=== PATIENT | female | born 1950 | race Caucasian/White ===

== ENCOUNTER 2019-11-22 13:48 | Outpatient (CLI) | payer MEDICARE, SELFPAY ==
--- NOTE | ~2019-11-22 | DEXA_ITS ---
Bone Density Report Name: Hoda Tidwell Age: 69 Sex: Female Ethnicity: White Date of : 1950 Indication: postmenopausal; hysterectomy; Referring Provider: EVA, LISHA Study: Bone densitometry was performed. Exam Date: November 22, 2019 Accession number: [id number] Bone Density: Region BMD T-score Z-score Classification AP Spine (L1-L4) 1.072 0.2 2.2 Normal Femoral Neck (Left) 0.748 -0.9 0.8 Normal Total Hip (Left) 1.003 0.5 1.9 Normal Total Hip Bilateral Avg 0.990 0.4 1.8 Normal Femoral Neck (Right) 0.740 -1.0 0.7 Normal Total Hip (Right) 0.975 0.3 1.7 Normal World Health Organization criteria for BMD impression classify patients as: Normal (T-score at or above -1.0), Osteopenia (T-score between -1.0 and -2.5), or Osteoporosis (T-score at or below -2.5). 10-year Fracture Risk: FRAX not reported because: All T-scores for Spine Total, Hip Total, Femoral Neck at or above -1.0 Previous Exams: Region Exam Age BMD T-score BMD Change BMD Change Date g/cm2 vs Baseline vs Previous AP Spine(L1-L4) 11/22/2019 69 1.072 0.2 -0.034(-3.0%)* -0.034(-3.0%)* 03/22/2015 64 1.105 0.5 Total Hip(Left) 11/22/2019 69 1.003 0.5 -0.013(-1.3%) -0.013(-1.3%) 03/22/2015 64 1.016 0.6 Total Hip(Right) 11/22/2019 69 0.975 0.3 -0.048(-4.6%)* -0.048(-4.6%)* 03/22/2015 64 1.023 0.7 *Denotes significance at 95% confidence level, LSC for AP Spine = 0.022 g/cm2, LSC for Total Hip = 0.027 g/cm2 Clinical Information Provided by Patient: Has used the following medications: Vitamin D, Calcium Has the following medical conditions: Hysterectomy Patient maximum height was 63 Menopause Age: 57 Drinks caffeinated beverages Onset of menses at age 15 Number of children 1 Impression: The patient has normal bone mass. The BMD for the AP Spine(L1-L4) decreased, changing by -3.0% since the last DXA exam. The BMD for the Total Hip(Right) decreased, changing by -4.6% since the last DXA exam. Discussion: BONE DENSITY IS ABOVE THE MINIMUM DESIRABLE LEVEL AT ALL SKELETAL SITES TESTED. This patient?s bone mineral density is above the minimum desirable level (T-score -1.0 or better) at all sites measured. The patient should follow a healthful lifestyle (good nutrition with adequate calcium and vitamin D, and appropriate weight-bearing exercise). Follow-Up: Consider repeating this study in 3 to 4 years to reassess this patient's status, or sooner if there
--- NOTE | ~2019-11-22 | MM_ITS ---
EXAMINATION: MM screening [facility] BI w [place] HISTORY: Screening mammogram TECHNIQUE: Craniocaudal and mediolateral oblique 3-D tomosynthesis images were obtained and synthetic 2-D images were generated. CAD analysis was submitted and interpreted. COMPARISON: 09/23/2018, 11/09/2017, 04/23/2017, 04/15/2017, 03/24/2016 BREAST PARENCHYMAL COMPOSITION: The breasts are heterogeneously dense, which may obscure small masses . FINDINGS: Scattered benign-appearing calcifications are present. There is no evidence of suspicious m ass, calcification, or architectural distortion to suggest malignancy in either breast. There has bee n no suspicious interval change. IMPRESSION: 1. No mammographic evidence of malignancy. 2. Recommend routine screening mammography in one year. BI-RADS Category 2: Benign finding(s). Reviewed, dictated and finalized at location A.
== END 2019-11-22 13:49 | disposition home or self-care (01) ==
LOC: ANHIMG 13:53
PROVIDERS: PCP Family Medicine; Visit Provider Nurse Practitioner
DX: Z12.31 Encounter for screening mammogram for malignant neoplasm of breast (principal); Z78.0 Asymptomatic menopausal state
CPT/HCPCS: 77063; 77067; 77080

== ENCOUNTER 2020-01-29 11:46 | Outpatient (NON) | payer MEDICARE, SELFPAY ==
[2020-01-29 23:58] LABS: SARS-CoV-2 RNA PCR Negative
== END 2020-01-29 11:47 ==
LOC: ANHCOVIDDT 11:48
PROVIDERS: PCP Family Medicine; Visit Provider Physician Assistant
DX: Z20.828 Contact with and (suspected) exposure to other viral communicable diseases (principal); R09.89 Other specified symptoms and signs involving the circulatory and respiratory systems
CPT/HCPCS: 87635; C9803; U0003

== ENCOUNTER 2021-01-08 18:44 | Emergency (ER) | payer MEDICARE, SELFPAY ==
--- NOTE | ~2021-01-08 | XR_ITS ---
EXAMINATION: XR chest 2V DATE: 01/08/2021 19:21 INDICATION: Hypertension presenting with chest and left arm tightness. TECHNIQUE: PA and lateral views of the chest were obtained. COMPARISON: Chest radiograph dated 11/05/2011 FINDINGS: The lungs remain clear with no focal airspace opacities, pulmonary edema, pleural effusion or pneumot horax. The cardiomediastinal silhouette is normal. Moderate to severe thoracic spondylosis. Cholecyst ectomy clips in the right upper quadrant. IMPRESSION: 1. No acute cardiopulmonary disease. Reviewed, dictated and finalized at location A. HOUSE INCENTIVE SELECTOR
[2021-01-08 18:55] VITALS: BP 204/107; PULSE 75; RESP 16; TEMP 36.6; O2SAT 100
[2021-01-08] MEDS: ALPRAZolam (*CRX) 0.5 MG TABLET PO (19:13)
--- NOTE | 2021-01-08 19:14 | PC.NURSE ---
Pt to [facility] via wheelchair at this time.
[2021-01-08 19:22] VITALS: BP 195/101; PULSE 63; RESP 18; O2SAT 100
[2021-01-08 19:28] LABS: Basophils Absolute Auto 0.1 K/mm3 (0.0-0.1); Basophils Percent Auto 0.7 % (0.2-1.2); Eosinophils Absolute Auto 0.2 K/mm3 (0-0.3); Hematocrit 44.4 % (37.0-47.0); Hemoglobin 14.6 g/dL (12.0-15.0); Immature Granulocyte Absolute 0.03 K/mm3 (0.00-0.031); Immature Granulocyte Percent A 0.3 % (0-0.5); Lymphocytes Absolute Auto 2.29 K/mm3 (0.9-3.2); Lymphocytes Percent Auto 23.1 % (18.3-44.2); Mean Corpuscular HGB Conc 32.9 g/dl (32-36); Mean Corpuscular Hemoglobin 30.7 pg (26-34); Mean Corpuscular Volume 93.5 fl (80-100); Mean Platelet Volume 9.1 fl (7.4-10.4); Monocytes Absolute Auto 0.7 K/mm3 (0.1-0.6); Monocytes Percent Auto 6.6 % (2.6-8.5); Neutrophils Absolute Auto 6.7 K/mm3 (1.3-6.7); Neutrophils Percent Auto 67.3 % (45.5-73.1); Platelet Count Result 358 k/mm3 (150-375); Red Blood Count 4.75 M/mm3 (4.2-5.4); Red Cell Distribution Width 12.3 % (11.5-14.5); White Blood Count 9.9 K/mm3 (4.5-10.0)
[2021-01-08 19:31] VITALS: BP 165/84
[2021-01-08 19:47] LABS: Anion Gap 9 mmol/L (8-16); Blood Urea Nitrogen 17 mg/dL (7-17); Calcium 9.5 mg/dL (8.4-10.2); Carbon Dioxide 26 mmol/L (22-30); Chloride 101 mmol/L (98-107); Estimated CRCL calculation 48 ml/min; Estimated Glomerular Filt Rate > 60; Glucose 97 mg/dL (65-110); Potassium 3.7 mmol/L (3.4-5.0); Sodium 136 mmol/L (137-145)
[2021-01-08 19:48] LABS: INR 0.9; Prothrombin Time 11.9 Seconds (11.1-14.7)
[2021-01-08 19:49] LABS: Partial Thromboplastin Time 25.2 SECONDS (22.3-36.8)
[2021-01-08 19:53] LABS: Troponin I < 0.012 ng/mL (0.000-0.034)
--- NOTE | 2021-01-08 19:55 | ED.GENADULT ---
HPI - General Adult General Chief complaint: Recheck/Abnormal Lab/Rx Stated complaint: high bp Time Seen by Provider: 01/08/21 18:48 History of Present Illness HPI narrative: Patient is a 70-year-old female who presents ER with hypertension. Patient reports systolic blood pressures in the 200 region at home x2 prior to arrival. She has been having issues with hypertension over the last month. This is her second ER visit. After her first visit she was put on indapamide which she had been taking previously. She still was having issues with episodic blood pressures around 190 mmHg when her doctor discontinued the indapamide and started her on labetalol 50 mg. Patient has been taking this medication because it also thought it may help control some anxiety she has been having. She reports she has been diagnosed with situational stress anxiety over the last year due to her mother's from Covid related complications and then dealing with issues related to her sister who has dementia. Today they did receive a call from the [facility] and were having to deal with issues related to the sister with dementia. Patient reports that when she starts to get episodes of stress she will get tightness in her neck and will also feel like her hands are shaking though they are not visibly shaking. She has not found an ideal way to fix this. This is how she has been feeling throughout the day. Related Data Home Medications Medication Instructions Recorded Confirmed ascorbate calcium (vitamin C) 500 500 mg PO DAILY 12/27/19 06/19/20 mg tablet cholecalciferol (vitamin D3) 25 25 mcg PO DAILY 12/27/19 06/19/20 mcg (1,000 unit) capsule garlic 1,000 mg capsule 1,000 mg PO DAILY 12/27/19 06/19/20 multivitamin 1 tablet PO DAILY 12/27/19 06/19/20 omega-3 fatty acids 1,000 mg 1,000 mg PO DAILY 12/27/19 06/19/20 capsule mecobalamin (vitamin B12) 5,000 5,000 mcg PO DAILY 12/31/20 mcg lozenge Allergies Allergy/AdvReac Type Severity Reaction Status Date / Time No Known Allergies Allergy Verified 01/08/21 19:13 Review of Systems Review of Systems: All systems reviewed & are unremarkable except as noted in HPI and below Constitutional: Constitutional: Denies chills, Denies fever(s) and Denies weakness ENT: Denies nasal congestion and Denies sore throat Comments: Neck tightness Cardiovascular: Cardiovascular: Denies chest pain, Denies rapid heart rate and Denies radiating jaw, neck or arm pain Respiratory: Respiratory: Denies cough, Denies dyspnea and Denies wheezing Gastrointestinal: Gastrointestinal: Denies abdominal pain and Denies nausea Musculoskeletal: Musculoskeletal: Denies back pain and Denies muscle cramps Neurologic: Denies headache(s), Denies focal weakness and Denies numbness PMFSH Past Medical History Medical History Cancer endometrial Carpal tunnel syndrome of left wrist Hypertension Hypertension, benign Hypothyroidism Lumbar spondylosis Skin lesion of left leg (~05/2018) Vitamin D deficiency Surgical History Surgical History History of breast lump/mass excision History of carpal tunnel surgery (~10/2011) left wrist History of hysterectomy (~05/2017) History of hysteroscopy (~04/2017) left wrist History of laparoscopic cholecystectomy (~2003) History of myomectomy (~1994) fibroid tumor removed off uterus History of oral surgery (~2005) removal of benign lesion inner mouth Hx of dilation and curettage (~04/2017) Hx of tonsillectomy (~1957) Social History Social History Smoking status: Never smoker Second hand tobacco smoke exposure: No Alcohol intake: current Alcohol use details: consume 1 glass of wine rarely Substance use: never Substance use type: does not use Gender identity (if verbalized by the patient): Female
--- NOTE | 2021-01-08 19:58 | PC.NURSE ---
Pt states she feels relaxed. Reports arm numbness and tightness in throat have improved since medication administration.
[2021-01-08 20:01] VITALS: BP 158/79; PULSE 65; RESP 18; O2SAT 99
[2021-01-08 20:28] VITALS: BP 138/78; PULSE 64; RESP 16; O2SAT 97
== END 2021-01-08 20:32 | disposition home or self-care (01) ==
PROVIDERS: Emergency Provider Emergency Medicine; PCP Family Medicine
DX: F41.9 Anxiety disorder, unspecified (principal); I10 Essential (primary) hypertension; Z85.42 Personal history of malignant neoplasm of other parts of uterus; E03.9 Hypothyroidism, unspecified; E55.9 Vitamin D deficiency, unspecified
CPT/HCPCS: 36415; 71046; 80048; 84484; 85025; 85610; 85730; 99284; A9270

== ENCOUNTER 2021-07-09 11:58 | Outpatient (CLI) | payer MEDICARE, SELFPAY ==
--- NOTE | ~2021-07-09 | MM_ITS ---
EXAMINATION: MM screening [facility] BI w [place] HISTORY: Screening mammogram TECHNIQUE: Craniocaudal and mediolateral oblique 3-D tomosynthesis images were obtained and synthetic 2-D images were generated. CAD analysis was submitted and interpreted. COMPARISON: 11/22/2019, 09/23/2018 BREAST PARENCHYMAL COMPOSITION: There are scattered areas of fibroglandular density. FINDINGS: There is no suspicious mass, calcification, or architectural distortion to suggest malignan cy in either breast. There has been no suspicious interval change. IMPRESSION: 1. No mammographic evidence of malignancy. 2. Recommend routine screening mammography in one year. BI-RADS Category 1: Negative Reviewed, dictated and finalized at location A.
== END 2021-07-09 11:59 | disposition home or self-care (01) ==
LOC: ANHIMG 11:59
PROVIDERS: PCP Family Medicine; Visit Provider Nurse Practitioner
DX: Z12.31 Encounter for screening mammogram for malignant neoplasm of breast (principal)
CPT/HCPCS: 77063; 77067

== ENCOUNTER 2022-06-28 15:00 | Inpatient (IN) | payer MEDICARE, SELFPAY ==
[2022-06-28] VITALS (22 sets, daily range): BP systolic 153–218; BP diastolic 84–118; PULSE 49–77; RESP 13–20; TEMP 36.3–36.7; O2SAT 98–100; BMI 25.9
--- NOTE | ~2022-06-28 | CT_ITS ---
. EXAMINATION: CTA brain carotid DATE: 06/28/2022 16:55 INDICATION: Dizziness. Left arm and leg weakness. TECHNIQUE: Computed tomographic angiography (CTA) of the head was performed without and with 100 mL O mnipaque-350 intravenous contrast. CTA of the neck was performed with intravenous contrast. Automated exposure control and iterative reconstruction technique were employed. The dose-length product was 1 699.68 mGy-cm. Maximum intensity projection and volume rendered 3D-reconstructions were created by corin palacios technologist on a separate workstation. COMPARISON: None. FINDINGS: HEAD CTA: There is no intracranial hemorrhage, acute infarction, or abnormal intracranial mass lesion . The ventricles are normal in size. The paranasal sinuses are clear. The orbits are normal. The mast oid air cells are normal. Right vertebral artery is dominant. There is no significant stenosis of bas ilar artery or the posterior cerebral arteries. The posterior communicating arteries are normal. Ther e is no significant stenosis of the intracranial internal carotid arteries or anterior or middle cere bral arteries. Anterior communicating artery is normal. There is no aneurysm. NECK CTA: There are no pathologically enlarged lymph nodes. There is no significant stenosis of the v ertebral arteries. There is plaque in the proximal internal carotid arteries. There is 0% stenosis of the proximal right internal carotid artery relative to normal distal artery lumen diameter (NASCET c riteria). There is 0% stenosis of the proximal left internal carotid artery relative to normal distal artery lumen diameter. There is severe cervical spondylosis. IMPRESSION: 1. Normal brain. No aneurysm or significant intracranial internal stenosis. 2. 0% stenosis of the proximal internal carotid arteries relative to normal distal artery lumen diame ters (NASCET criteria). Reviewed, dictated and finalized at location A. IMPRESSION: 1. Normal brain. No aneurysm or significant intracranial internal stenosis. 2. 0% stenosis of the proximal internal carotid arteries relative to normal dis samantha artery lumen diameters (NASCET criteria).
--- NOTE | ~2022-06-28 | MR_ITS ---
EXAMINATION: MR brain/brain stem wo/w con DATE: 06/29/2022 08:17 INDICATION: Cerebrovascular accident. Left hemiparesis TECHNIQUE: Magnetic resonance imaging (MRI) of the brain and brainstem was performed without and with 13 mL MultiHance intravenous contrast. COMPARISON: Head CT 06/28/2022 FINDINGS: There is an acute infarct involving the right basal ganglia and posterior limb right leadership program intern al capsule. There is no intracranial hemorrhage. There is an 11 mm enhancing mass at the lateral aspe ct of the right cavernous sinus. There are scattered areas of nonspecific increased T2-weighted signa l intensity in the cerebral white matter, which is within normal limits for the patient's age. The ve ntricles are normal in size. The paranasal sinuses are clear. The orbits are normal. The mastoid air cells are normal. IMPRESSION: 1. Acute infarct involving the right basal ganglia and posterior limb right internal capsule. 2. 11 mm enhancing mass at the lateral aspect of the right cavernous sinus, which may be a meningioma or schwannoma. Reviewed, dictated and finalized at location A. IMPRESSION: 1. Acute infarct involving the right basal ganglia and posterior limb right int ernal capsule. 2. 11 mm enhancing mass at the lateral aspect of the right cavernous sinus, whi ch may be a meningioma or schwannoma.
--- NOTE | ~2022-06-28 | MR_ITS ---
EXAMINATION: MR brain/brain stem wo/w con DATE: 06/30/2022 15:04 INDICATION: Acute stroke with increasing left-sided weakness TECHNIQUE: Magnetic resonance imaging (MRI) of the brain and brainstem was performed without and with 13 mL Multihance intravenous contrast. Sequences included sagittal and axial T1-weighted SE, axial d iffusion-weighted FS SE, axial 3D SWAN, axial T2-weighted FLAIR, and axial T2-weighted FSE. Postcontr ast axial and coronal T1-weighted SE was obtained. Apparent diffusion coefficient (ADC) maps were cre ated. COMPARISON: Brain MR dated 06/29/2022 FINDINGS: No interval change in size or extent of a region of acute infarct with restricted diffusion involving the right basal ganglia and extending into the posterior limb of the right internal capsule. There h as been interval increase in the intensity but not extending to the associated increased T2 signal co nsistent with progression of secondary cytotoxic edema. No intracranial hemorrhage. No interval ribera e in a 11 mm enhancing extra-axial mass at the lateral aspect of the right cavernous sinus. There are a few additional scattered small foci of nonspecific increased T2-weighted signal intensity in the c erebral white matter which is within normal limits for age. There are no intraparenchymal signal abno rmalities seen on the other pulse sequences. The ventricles are symmetric and normal in size. There a re no abnormal extra-axial fluid collections. Flow voids are seen in the cerebral arteries on the T2- weighted sequences consistent with their expected patency. Visualized orbits and soft tissues are unr emarkable. IMPRESSION: 1. No change in extent of an acute infarct involving the right basal ganglia and posterior limb of th e right internal capsule with increase in degree of associated cytotoxic edema. 2. No interval change in a 11 mm enhancing extra-axial masses at the lateral aspect of right cavernou s sinus most likely representing a meningioma or hemangioma. Reviewed, dictated and finalized at location A. IMPRESSION: 1. No change in extent of an acute infarct involving the right basal ganglia an d posterior limb of the right internal capsule with increase in degree of assoc iated cytotoxic edema. 2. No interval change in a 11 mm enhancing extra-axial masses at the lateral as pect of right cavernous sinus most likely representing a meningioma or hemangio ma.
--- NOTE | 2022-06-28 15:04 | ECG_ITS ---
Measurements Intervals [place] Rate: 62 P: 20 CT: 135 QRS: -24 QRSD: 118 T: 43 QT: 429 QTc: 438 Interpretive Statements SINUS RHYTHM INTRAVENTRICULAR CONDUCTION DELAY DELAYED PRECORDIAL R/S TRANSITION MINIMAL Q WAVES- HIGH LATERAL LEADS BORDERLINE ECG NO PREVIOUS ECG AVAILABLE FOR COMPARISON Electronically Signed On 06-28-2022 21:20:56 CDT by Celestino Mar D.O.
--- NOTE | 2022-06-28 15:11 | PC.NURSE ---
Patient states at 0730 this morning she noticed she was having dizziness and her left arm and leg were feeling heavy . patient has no drift in any extremities.
[2022-06-28 15:24] LABS: Basophils Absolute Auto 0.1 K/mm3 (0.0-0.1); Basophils Percent Auto 0.5 % (0.2-1.2); Eosinophils Absolute Auto 0.2 K/mm3 (0-0.3); Eosinophils Percent Auto 1.7 % (0-4.4); Hematocrit 43.3 % (37.0-47.0); Hemoglobin 14.2 g/dL (12.0-15.0); Immature Granulocyte Absolute 0.02 K/mm3 (0.00-0.031); Immature Granulocyte Percent A 0.2 % (0-0.5); Lymphocytes Absolute Auto 2.05 K/mm3 (0.9-3.2); Lymphocytes Percent Auto 20.3 % (18.3-44.2); Mean Corpuscular HGB Conc 32.8 g/dl (32-36); Mean Corpuscular Hemoglobin 31.1 pg (26-34); Mean Corpuscular Volume 94.7 fl (80-100); Mean Platelet Volume 9.6 fl (7.4-10.4); Monocytes Absolute Auto 0.5 K/mm3 (0.1-0.6); Monocytes Percent Auto 5.4 % (2.6-8.5); Neutrophils Absolute Auto 7.3 K/mm3 (1.3-6.7); Neutrophils Percent Auto 71.9 % (45.5-73.1); Platelet Count Result 298 k/mm3 (150-375); Red Blood Count 4.57 M/mm3 (4.2-5.4); Red Cell Distribution Width 12.6 % (11.5-14.5); White Blood Count 10.1 K/mm3 (4.5-10.0)
--- NOTE | 2022-06-28 15:33 | ED.GENADULT ---
HPI - General Adult General Chief complaint: Dizziness Stated complaint: dizzy, lightheaded Time Seen by Provider: 06/28/22 15:11 History of Present Illness HPI narrative: 71-year-old female presenting to the emergency department for evaluation of dizziness and associated left arm and left leg weakness. Patient states yesterday she was working in the yard and had approximately a 10 to 15-minute period where she had onset of dizziness and had some gait instability. Patient states that symptoms resolved and she felt that she was fine the rest of the evening. Patient states that when she woke up this morning the dizziness had returned but she also had left arm and left leg weakness. Patient denies any confusion any facial droop any change in speech. Patient has no prior history of TIA, CVA, stroke, PE, DVT Patient does have history of hypertension and does take metoprolol Related Data Home Medications Medication Instructions Recorded Confirmed cholecalciferol (vitamin D3) 25 25 mcg PO DAILY 12/27/19 06/28/22 mcg (1,000 unit) capsule garlic 1,000 mg capsule 1,000 mg PO DAILY 12/27/19 06/28/22 multivitamin 1 tablet PO DAILY 12/27/19 06/28/22 omega-3 fatty acids 1,000 mg 1,000 mg PO DAILY 12/27/19 06/28/22 capsule (Fish Oil Concentrate) cyanocobalamin (vitamin B-12) 500 500 mcg PO DAILY 01/30/21 06/28/22 mcg lozenges (Vitamin B-12) ascorbate calcium (vitamin C) 500 500 mg PO DAILY 05/20/21 06/28/22 mg tablet ketoconazole 2 % topical cream 1 applic topical BID 06/23/22 06/28/22 labetalol 100 mg tablet 100 mg PO BID 06/23/22 06/28/22 triamcinolone acetonide 0.1 % 1 applic topical BID 06/23/22 06/28/22 topical cream Allergies Allergy/AdvReac Type Severity Reaction Status Date / Time No Known Allergies Allergy Verified 06/23/22 09:23 Review of Systems Review of Systems: All systems reviewed & are unremarkable except as noted in HPI and below PMFSH Past Medical History Medical History Cancer endometrial Carpal tunnel syndrome of left wrist Essential hypertension Hypertension Hypertension, benign Hypothyroidism Lumbar spondylosis Skin lesion of left leg (~05/2018) Vitamin B12 deficiency Vitamin D deficiency Surgical History Surgical History History of breast lump/mass excision History of carpal tunnel surgery (~10/2011) left wrist History of hysterectomy (~05/2017) History of hysteroscopy (~04/2017) left wrist History of laparoscopic cholecystectomy (~2003) History of myomectomy (~1994) fibroid tumor removed off uterus History of oral surgery (~2005) removal of benign lesion inner mouth Hx of dilation and curettage (~04/2017) Hx of tonsillectomy (~1957) Social History Social History Smoking status: Never smoker Second hand tobacco smoke exposure: No Alcohol intake: current Drinks per week: 2 Alcohol use details: consume 1 glass of wine rarely Substance use: never Substance use type: does not use Lack of Transportation: No Lack of Food: Never True Current Housing: I Have Housing Concerned About Future Housing: No Difficulty Paying Gas/Electric Bills: No Difficulty Paying for Meds: No Currently Unemployed: No Education: Bachelor's Degree Difficulty w/ Childcare or Family Care: No Living arrangements: with family Additional living arrangements comments: ROBERT Occupation/Education: retired Gender identity (if verbalized by the patient): Female Sexual Orientation (if Verbalized by the Patient): Straight or Heterosexual Spiritual care concerns: No Agree to blood products: Yes Exam Narrative: APPEARANCE: Well appearing, no pain, no distress, well-nourished. HEAD: normocephalic, atraumatic. EYES: PERRLA/EOMI, conjunctivae clear. No visual field deficit NOSE: Normal no drainage EA
[2022-06-28 15:38] LABS: Alanine Aminotransferase 34 U/L (6-35); Albumin Level 4.3 g/dL (3.5-5.1); Alkaline Phosphatase 83 U/L (38-126); Anion Gap 10 mmol/L (8-16); Aspartate Amino Transferase 32 U/L (14-36); Bilirubin,Total 0.7 mg/dL (0.2-1.3); Blood Urea Nitrogen 21 mg/dL (7-17); Carbon Dioxide 24 mmol/L (22-30); Chloride 104 mmol/L (98-107); Estimated CRCL calculation 59 ml/min; Estimated Glomerular Filt Rate > 60; Glucose 142 mg/dL (65-110); Sodium 138 mmol/L (137-145)
[2022-06-28] MEDS: ASPIRIN 81 MG CHEWABLE TABLET 324 MG PO (17:29)
--- NOTE | 2022-06-28 22:34 | PM.IMHP ---
H&P: HPI History of Present Illness Date/Time: 06/28/22 19:00 Chief Complaint: Left-sided weakness and off balance. Narrative: This is a very pleasant 71-year-old female with hypertension, hypothyroidism, and anxiety who presented to the emergency department via private vehicle from home for evaluation of left-sided weakness and feelings of being off balance. The patient provides the following history. Yesterday she was at an event out in the community and was feeling fine however sometime in the afternoon she got up from a seated position and while walking she felt off balance an as though her left foot was not doing what she wanted to do. This lasted for approximately 15 minutes before resolving and the rest of her day was unremarkable. 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 Her balance also seemed a bit off again. She and her went to [employer] and due to persistent symptoms she came in for evaluation. She denies overt vertigo, vision changes, facial droop, paresthesias, and difficulty speaking and swallowing. She has no history of cardiac dysrhythmia but does describe having a remote history of palpitations for which she wore an event monitor many years ago which was unrevealing. In the ED: Blood pressure has been as high as 205/92 which is quite unusual for her. Her remaining vital signs have been stable. Pertinent labs included WBC count of 10.1, hemoglobin 14.2, normal electrolytes, random glucose 142, normal LFTs. CTA of the head and neck showed a normal brain with no aneurysm or significant intracranial internal stenosis and 0% stenosis of the proximal internal carotid arteries. EKG showed a sinus rhythm with interventricular conduction delay, delayed precordial R/S transition, and minimal Q-waves in the high lateral leads. She is being admitted in this setting for close monitoring and neurology consultation. Review of Systems Review of Systems: Twelve systems were reviewed. No recent cold or flu symptoms. She denies exertional chest pain shortness a breath. No nausea or vomiting. Except as documented, all other systems were reviewed and are negative. [facility] Past Medical History Medical History (Updated 06/28/22 @ 22:48 by Juli Carter PA-C) Endometrial cancer Stage I, status post hysterectomy. Essential hypertension Hypothyroidism Lumbar spondylosis Mixed hyperlipidemia Vitamin B12 deficiency Vitamin D deficiency Surgical History Surgical History (Updated 06/28/22 @ 22:43 by Juli Carter PA-C) History of breast lump/mass excision History of carpal tunnel surgery (10/2011) Left. History of dilation and curettage (04/2017) History of hysterectomy (05/2017) History of hysteroscopy (04/2017) History of laparoscopic cholecystectomy (2003) History of myomectomy (1994) fibroid tumor removed off uterus History of oral surgery (2005) Excision of benign lesion from the mouth. History of tonsillectomy (1957) Family History Family History (Updated 06/28/22 @ 22:44 by Juli Carter PA-C) Mother Lung cancer Hypertension Acute myocardial infarction Father Lung cancer Social History Social History (Updated 06/28/22 @ 22:45 by Juli Carter PA-C) Social History: Surrogate medical decision maker: Heriberto Tidwell, spouse. Code status: Full code. Smoking status: Never smoker Second hand tobacco smoke exposure: No Alcohol intake: current Alcohol use details: One glass of wine on rare occasions. Substance use: never Substance use type: does not use Lack of Transportation: No Lack of Food: Never True Current Housing: I Have Housing Concerned About Future Housing: No Difficulty Paying Gas/Electric Bills: No Difficulty Paying for Meds: No Currently Unemployed: No Education: Bachelor's Degree Difficulty w/ Childcare or Family Care:
[2022-06-29] VITALS (11 sets, daily range): BP systolic 151–164; BP diastolic 72–96; PULSE 55–83; RESP 18–20; TEMP 36.5–36.7; O2SAT 96–99
[2022-06-29] MEDS: LABETALOL HCL 100 MG TABLET PO ×3 (00:16→20:39)
[2022-06-29 05:31] LABS: Anion Gap 3 mmol/L (8-16); Blood Urea Nitrogen 19 mg/dL (7-17); Calcium 9.3 mg/dL (8.4-10.2); Carbon Dioxide 28 mmol/L (22-30); Chloride 108 mmol/L (98-107); Estimated CRCL calculation 47 ml/min; Estimated Glomerular Filt Rate > 60; Glucose 95 mg/dL (65-110); Magnesium 2.1 mg/dL (1.6-2.3); Potassium 4.1 mmol/L (3.4-5.0); Sodium 139 mmol/L (137-145)
[2022-06-29 06:01] LABS: Thyroid Stimulating Hormone Reflex 0.705 uIU/mL (0.465-4.68)
[2022-06-29] MEDS: LEVOTHYROXINE SODIUM 100 MCG TABLET PO (06:05)
--- NOTE | 2022-06-29 07:12 | PM.IMPN ---
Progress Note: A&P Assessment and Plan (1) Left-sided weakness: Code(s): R53.1 - Weakness Status: Acute Assessment and Plan: Patient had a 15 minute episode 06/27/22 afternoon where she felt off balance and as though her left foot was a bit discoordinated that resolved spontaneously. She developed weakness and heaviness in the left arm and leg upon waking 06/28/22 which persisted prompting her visit to ED. CTA of the head and neck without acute infarct, aneurysm, or LVO. But given symptoms concern for TIA versus CVA. Risk factors include: hyperlipidemia (not on medication)- check lipid panel. Significant HTN (SBP >200/95). she is compliant with her antihypertensives and reports her blood pressures are typically well controlled. Review of PCP office notes show BP 126/80-138/84 in the past year. Continue labetalol BID and PRN hydralazine SBP>185 or DBP> 110. Allow for permissive hypertension first 24 hours and slowly decrease by no more than 25%. EKG shows sinus rhythm 62 bpm with minimal Qwaves high lateral leads. No prior EKG for comparison. Monitoring telemetry for arrythmia. Continue neurologic checks q.4 hours. Brain MRI shows acute infarct involving the right basal ganglia posterior limb right internal capsule echocardiogram with bubble study pending. 324 mg PO aspirin given in ED and started on aspirin 81 mg daily. Plavix 75 mg p.o. daily x6 weeks initiated per Neurology Lipid panel shows LDL and triglycerides 98. apo-B pending. Lipitor 40 mg p.o. daily started Check B12, folate, homocysteine and MMA to rule out persistent vitamin B deficiency given her history. Check vitamin D level due to gait instability-48 A1c 5.4 % Neurology has been consulted and appreciate recommendations (2) Essential hypertension: Code(s): I10 - Essential (primary) hypertension Status: Chronic Assessment and Plan: Blood pressures have been running in the 180s to low 200s systolic upon presentation. Continue BP management as above. (3) Mixed hyperlipidemia: Code(s): E78.2 - Mixed hyperlipidemia Status: Chronic Assessment and Plan: Documented history of hyperlipidemia though she is not currently on medication. 12/2021 lipid panel shows Triglycerides 108, LDL 129, non-HDL 151, HDL 73. Lipid panel and apo-B level as above. (4) Hypothyroidism: Qualifiers: Hypothyroidism type: acquired Qualified Code(s): E03.9 - Hypothyroidism, unspecified Code(s): E03.9 - Hypothyroidism, unspecified Status: Chronic Assessment and Plan: TSH 0.705. Continue levothyroxine. Time Spent With Patient Time: 45 minutes time spent with patient assessment; patient/family education; review of labs, imaging, vitals; coordination and review of consult provider and nursing documentation. All questions answered to the best of my ability. Subjective Date/time seen: 06/29/22 07:12 Interval history: She reports persistent heavy sensation to her left arm and left leg. She denies headaches, vision changes, word finding, slurred speech, facial droop, facial paresthesia, dysphagia, or paresthesia. She feels like her gait is unsteady due to heavy sensation to her left leg. Review of Systems Review of Systems: All systems reviewed & are unremarkable except as noted in HPI and below Exam Narrative: General: well-developed female sitting up in bed in no distress. Nontoxic appearing HEENT: Normocephalic, atraumatic. PERRL, EOMI. Sclera anicteric. Oral mucosa moist. Oropharynx clear. Neck: Supple. No carotid bruits. Respiratory: Lungs are clear to auscultation bilaterally. Respirations equal and nonlabored Cardiovascular: Regular rate and rhythm with S1-S2. No murmur, rub, or gallop. Normal sinus rhythm on telemetry Gastrointestinal: Abdomen is soft, nontender, and nondistended with positive bowel sounds. Skin: Warm and dry. No rash or les
[2022-06-29 07:49] LABS: Cholesterol 198 mg/dL (0-200); HDL Direct 60 mg/dL; Triglycerides 98 mg/dL (<150)
[2022-06-29 08:00] LABS: LDL Cholesterol Direct 98 mg/dL
[2022-06-29 08:08] LABS: Vitamin D 25 Hydroxy 48.7 ng/mL
[2022-06-29 08:15] LABS: Hemoglobin A1C 5.4 % (<5.7)
[2022-06-29 09:02] LABS: Folic Acid > 20.0 ng/mL (2.76->20)
[2022-06-29] MEDS: CHOLECALCIFEROL 1,000 UNITS TABLET 1000 UNITS PO (10:01)
[2022-06-29] MEDS: CYANOCOBALAMIN 500 MCG TABLET PO (10:01)
[2022-06-29] MEDS: MULTIVITAMINS THERAPEUTIC TAB (*BKC) 1 TABLET PO (10:01)
[2022-06-29] MEDS: OMEGA 3 POLYUNSAT FATTY ACIDS 1 GM CAP PO (10:01)
[2022-06-29] MEDS: ASCORBIC ACID 500 MG TABLET PO (10:01)
[2022-06-29] MEDS: ASPIRIN 81 MG CHEWABLE TABLET PO (10:02)
--- NOTE | 2022-06-29 11:19 | WPDNEURCNPN ---
Assessment and Plan Assessment and plan (1) Left-sided weakness: Code(s): R53.1 - Weakness Status: Acute (2) Acute CVA (cerebrovascular accident): Code(s): I63.9 - Cerebral infarction, unspecified Status: Acute (3) Essential hypertension: Code(s): I10 - Essential (primary) hypertension Status: Chronic (4) Mixed hyperlipidemia: Code(s): E78.2 - Mixed hyperlipidemia Status: Chronic Plan Hoda Tidwell is a 71 year old female with a history of hypertension, hypothyroidism, anxiety who presented due to concerns of dizziness and left sided weakness, found to have acute lacunar infarct in the right basal ganglia. Etiology is likely uncontrolled hypertension. - Start Aspirin and Plavix x 3 weeks, then Aspirin monotherapy - LDL goal <70, start statin - Surface echocardiogram is pending - Optimize blood pressure control - Outpatient Neurosurgery evaluation of meningioma/schwannoma Consult date: 06/29/22 Reason for consult: TIA/stroke HPI: Hoda Tidwell is a 71 year old female with a history of hypertension, hypothyroidism, anxiety who presented due to concerns of dizziness and left sided weakness. On 06/27 patient got up from seated posoition and felt like she was off balance, as if she has no control of her left foot. This lasted for about 15 minutes before self-resolving. 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 Due to persistence of symptoms, she presented to [place] ED. In the ED her blood pressure was notably elevated to 218 systolic. Her EKG showed normal sinus rhythm. CT head was negative for acute process and CTA was negative for stenosis or occlusion. Her NIH score was 2 for limb ataxia. She did not receive tPA due to being outside window for acute treatment. Her LDL level is 98 from this admission. Her HgbA1c is 5.4. She does not take any antiplatelets or statins. MRI brain has been done which shows acute infarct in the right basal ganglia and posterior limb of right internal capsule. Also noted to have 11 mm enhancing mass in the lateral aspect of right cavernous sinus, which may indicate meningioma or schwannoma. Patient still feels weak on the left side. Review of Systems Constitutional: Constitutional: Denies chills, Denies fever(s) and Denies weight loss Eyes: Eyes: Denies diplopia and Denies loss of vision ENT: Denies dizziness, Denies hearing loss and Denies tinnitus Cardiovascular: Cardiovascular: Denies chest pain, Denies syncope and Denies dyspnea Respiratory: Respiratory: Denies cough, Denies dyspnea and Denies wheezing Gastrointestinal: Gastrointestinal: Denies abdominal pain, Denies change in bowel habits and Denies vomiting Genitourinary: Genitourinary: Denies urinary incontinence Musculoskeletal: Musculoskeletal: Denies arthralgias and Denies joint swelling Integumentary/Breasts: Skin/Breast: Denies new lesions and Denies rash Neurologic: Reports as per HPI, Denies dizziness, Denies syncope and Denies loss of vision Psychiatric: Psychiatric: Denies anxiety and Denies depression Endocrine: Endocrine: Denies cold intolerance and Denies heat intolerance Hematologic/Lymphatic: Hematologic/Lymphatic: Denies easy bleeding and Denies easy bruising Allergic/Immunologic: Allergic/Immunologic: Denies no additional allergic/immunologic complaints and Denies wheezing PMFSH Past Medical History Medical History Endometrial cancer Stage I, status post hysterectomy. Essential hypertension Hypothyroidism Lumbar spondylosis Mixed hyperlipidemia Vitamin B12 deficiency Vitamin D deficiency Surgical History Surgical History History of breast lump/mass excision History of carpal tunnel surgery (10/2011) Left. History of dilation and curettage (04/2017) Hist
--- NOTE | 2022-06-29 14:50 | ECHO_ITS ---
Patient Info Name: Hoda Tidwell Age: 71 years : 1950 Gender: Female Ht: 63 in Wt: 146 lbs BSA: 1.73 m2 HR: 65 bpm BP: 188 / 86 mmHg Technical Quality: Fair Exam Date: 06/29/2022 2:28 PM Exam Location: [facility] Pulmonary Exam Room: 257 Patient Status: Inpatient Admit Date: 06/29/2022 Staff Ordering Physician: Juli Carter PA-C [employer] Picker: Nadia Jaramillo RDCS Attending Provider: Charlie Vasquez MD Referring Physician: Raul AMIN; Exam Type: CA echo doppler w bubble study Study Info Indications - left side weakness - htn Complete two-dimensional, color flow and Doppler transthoracic echocardiogram is performed with agitated saline. Contrast/Agitated Saline Contrast/Ag. Saline: Agitated Saline Amount: 20.00 ml Existing IV Access: Yes Summary 1. Left ventricular chamber dimension is normal. 2. Left ventricular systolic function is normal, estimated at 60-65%. 3. The left ventricular diastolic function is grade I diastolic dysfunction. 4. E/e' 12 is mildly elevated. 5. There is trace mitral valve regurgitation. 6. There is trace tricuspid valve regurgitation. 7. No pulmonary hypertension, estimated pulmonary arterial systolic pressure is 37 mmHg. 8. There is trace pulmonic regurgitation. Left Ventricle E/e' 12 is mildly elevated. Left ventricular chamber dimension is normal. Left ventricular systolic function is normal, estimated at 60-65%. The left ventricular diastolic function is grade I diastolic dysfunction. Right Ventricle Right ventricular chamber dimension is normal. Right ventricular systolic function is normal. Left Atria Left atrial chamber dimension is normal. Atrial Septum Agitated saline injection with and without valsalva maneuver opacified right side cardiac chambers without shunt to left side cardiac chambers. Intact interatrial septum visualized by 2D and agitated saline imaging. Aortic Valve The aortic valve is trileaflet. There is no aortic valve stenosis. There is no aortic valve regurgitation. Pulmonic Valve There is trace pulmonic regurgitation. Mitral Valve There is no mitral valve stenosis. There is trace mitral valve regurgitation. Tricuspid Valve There is trace tricuspid valve regurgitation. No pulmonary hypertension, estimated pulmonary arterial systolic pressure is 37 mmHg. Pericardium/Pleural There is no pericardial effusion. Inferior Vena Cava Normal inferior vena cava with >50% collapse upon inspiration consistent with normal right atrial pressure, 5 mmHg. Aorta The aortic root size at the sinus of Valsalva is normal. Left Ventricular Outflow Tract Name Value Normal LVOT 2D LVOT Diameter 2.0 cm LVOT Doppler LVOT Peak Gradient 4 mmHg LVOT Mean Gradient 2 mmHg LVOT VTI 23 cm LVOT VTI/AV VTI Ratio 1.1 LVOT Stroke Volume 71 ml LVOT CO 13.3 l/min LVOT CI 7.7 l/min/m2 Pulmonic Valve
[2022-06-30] VITALS (13 sets, daily range): BP systolic 143–178; BP diastolic 68–95; PULSE 59–97; RESP 14–20; TEMP 36.6–36.7; O2SAT 97–99
[2022-06-30] MEDS: LEVOTHYROXINE SODIUM 88 MCG TABLET PO (05:40)
[2022-06-30] MEDS: OMEGA 3 POLYUNSAT FATTY ACIDS 1 GM CAP PO (08:21)
[2022-06-30] MEDS: ASCORBIC ACID 500 MG TABLET PO (08:21)
[2022-06-30] MEDS: ATORVASTATIN 40 MG TABLET PO (08:21)
[2022-06-30] MEDS: CLOPIDOGREL BISULFATE 75 MG TABLET PO (08:21)
[2022-06-30] MEDS: MULTIVITAMINS THERAPEUTIC TAB (*BKC) 1 TABLET PO (08:21)
[2022-06-30] MEDS: CYANOCOBALAMIN 500 MCG TABLET PO (08:21)
[2022-06-30] MEDS: CHOLECALCIFEROL 1,000 UNITS TABLET 1000 UNITS PO (08:22)
[2022-06-30] MEDS: LABETALOL HCL 100 MG TABLET PO ×2 (08:22→21:01)
[2022-06-30] MEDS: ASPIRIN 81 MG CHEWABLE TABLET PO (08:22)
[2022-06-30] MEDS: LORazepam (*CRX) 0.5 MG TABLET PO ×2 (08:41→21:01)
[2022-06-30] MEDS: LOSARTAN POTASSIUM 50 MG TABLET PO (10:32)
[2022-06-30] MEDS: TRIAMCINOLONE ACET 0.1% CREAM 15 GM TUBE 1 APPLIC TOPICAL (12:35)
[2022-06-30] MEDS: MICONAZOLE NITRATE 2% CREAM 30 GM TUBE 1 APPLIC TOPICAL ×2 (12:35→21:01)
--- NOTE | 2022-06-30 13:01 | WPDNEUROPN ---
Progress Note: A&P Assessment and Plan (1) Left-sided weakness: Code(s): R53.1 - Weakness Status: Acute (2) Acute CVA (cerebrovascular accident): Code(s): I63.9 - Cerebral infarction, unspecified Status: Acute (3) Mixed hyperlipidemia: Code(s): E78.2 - Mixed hyperlipidemia Status: Chronic (4) Essential hypertension: Code(s): I10 - Essential (primary) hypertension Status: Chronic Plan Hoda Tidwell is a 71 year old female with a history of hypertension, hypothyroidism, anxiety who presented due to concerns of dizziness and left sided weakness, found to have acute lacunar infarct in the right basal ganglia. Etiology is likely uncontrolled hypertension. Patient reports worsening left sided weakness today. Likely related to evolving edema surrounding infarct. Will repeat MRI to confirm. - Repeat MRI brain w/o contrast - Start Aspirin and Plavix x 3 weeks, then Aspirin monotherapy - LDL goal <70, start statin - Optimize blood pressure control - Outpatient Neurosurgery evaluation of meningioma/schwannoma Subjective Date/time seen: 06/30/22 13:01 Interval history: Hoda Tidwell is a 71 year old female with a history of hypertension, hypothyroidism, anxiety who presented due to concerns of dizziness and left sided weakness. On 06/27 patient got up from seated position and felt like she was off balance, as if she has no control of her left foot. This lasted for about 15 minutes before self-resolving. 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 Due to persistence of symptoms, she presented to [place] ED. In the ED her blood pressure was notably elevated to 218 systolic. Her EKG showed normal sinus rhythm. CT head was negative for acute process and CTA was negative for stenosis or occlusion. Her NIH score was 2 for limb ataxia. She did not receive tPA due to being outside window for acute treatment. Her LDL level is 98 from this admission. Her HgbA1c is 5.4. She does not take any antiplatelets or statins. MRI brain has been done which shows acute infarct in the right basal ganglia and posterior limb of right internal capsule. Also noted to have 11 mm enhancing mass in the lateral aspect of right cavernous sinus, which may indicate meningioma or schwannoma. Blood pressure was in the 170s earlier today so Losartan was added. BP improved to 140s. Patient still feels weak on the left side, today she feels that her coordination and strength have worsened. Surface echocardiogram was unrevealing. Review of Systems Constitutional: Constitutional: Denies chills, Denies fever(s) and Denies weight loss Eyes: Eyes: Denies diplopia and Denies loss of vision ENT: Denies dizziness, Denies hearing loss and Denies tinnitus Cardiovascular: Cardiovascular: Denies chest pain, Denies syncope and Denies dyspnea Respiratory: Respiratory: Denies cough, Denies dyspnea and Denies wheezing Gastrointestinal: Gastrointestinal: Denies abdominal pain, Denies change in bowel habits and Denies vomiting Genitourinary: Genitourinary: Denies urinary incontinence Musculoskeletal: Musculoskeletal: Denies arthralgias and Denies joint swelling Integumentary/Breasts: Skin/Breast: Denies new lesions and Denies rash Neurologic: Reports as per HPI, Denies dizziness, Denies syncope and Denies loss of vision Psychiatric: Psychiatric: Denies anxiety and Denies depression Endocrine: Endocrine: Denies cold intolerance and Denies heat intolerance Hematologic/Lymphatic: Hematologic/Lymphatic: Denies easy bleeding and Denies easy bruising Allergic/Immunologic: Allergic/Immunologic: Denies no additional allergic/immunologic complaints and Denies wheezing Exam Const: General: no acute distress and well nourished Nutritional Appearance: well nourished HENMT: Head: normocephalic and atraumatic Ears: hearing grossly normal bilate
--- NOTE | 2022-06-30 17:17 | PM.IMPN ---
Progress Note: A&P Assessment and Plan (1) Left-sided weakness: Code(s): R53.1 - Weakness Status: Acute Assessment and Plan: Patient had a 15 minute episode 06/27/22 afternoon where she felt off balance and as though her left foot was a bit discoordinated that resolved spontaneously. She developed weakness and heaviness in the left arm and leg upon waking 06/28/22 which persisted prompting her visit to ED. CTA of the head and neck without acute infarct, aneurysm, or LVO. But given symptoms concern for TIA versus CVA. Risk factors include: hyperlipidemia (not on medication)- check lipid panel. Significant HTN (SBP >200/95). she is compliant with her antihypertensives and reports her blood pressures are typically well controlled. Review of PCP office notes show BP 126/80-138/84 in the past year. Continue labetalol BID and PRN hydralazine SBP>185 or DBP> 110. Allow for permissive hypertension first 24 hours and slowly decrease by no more than 25%. EKG shows sinus rhythm 62 bpm with minimal Qwaves high lateral leads. No prior EKG for comparison. Monitoring telemetry for arrythmia. Continue neurologic checks q.4 hours. Brain MRI shows acute infarct involving the right basal ganglia posterior limb right internal capsule echocardiogram with bubble study shows no PFO/ASD, normal LV systolic function, EF 60-65%, grade 1 diastolic dysfunction, E/E 12 and mildly elevated and trace mitral and tricuspid valve regurgitation. H2FPEF score 57.9% risk HFpEF 324 mg PO aspirin given in ED and started on aspirin 81 mg daily. Plavix 75 mg p.o. daily x6 weeks initiated per Neurology Lipid panel shows LDL and triglycerides 98. apo-B pending. Lipitor 40 mg p.o. daily started B12 and folate-within normal limits homocysteine and MMA pending vitamin D level due to gait instability-stable at 48 A1c 5.4 % Neurology has been consulted and appreciate recommendations 06/30/2022 blood pressure still elevated 175/87, heart rate 73 this morning. Losartan 50 mg p.o. daily added and repeat BP 143/82. Hydralazine IV p.r.n. parameters decreased to give SBP greater than 150 and DBP greater than 90. Goal blood pressure optimally less than 130/80. Continue to adjust antihypertensives as needed. 06/30/2022 patient reported increased weakness to left upper extremity and left lower extremity. Discussed with neurology who is in agreement repeat MRI of the brain was completed and did not show changed to acute infarct region however increased edema was noted. (2) Essential hypertension: Code(s): I10 - Essential (primary) hypertension Status: Chronic Assessment and Plan: Blood pressures have been running in the 180s to low 200s systolic upon presentation. Continue BP management as above. (3) Mixed hyperlipidemia: Code(s): E78.2 - Mixed hyperlipidemia Status: Chronic Assessment and Plan: Documented history of hyperlipidemia though she is not currently on medication. 12/2021 lipid panel shows Triglycerides 108, LDL 129, non-HDL 151, HDL 73. Lipid panel as above. Apo-B level pending (4) Hypothyroidism: Qualifiers: Hypothyroidism type: acquired Qualified Code(s): E03.9 - Hypothyroidism, unspecified Code(s): E03.9 - Hypothyroidism, unspecified Status: Chronic Assessment and Plan: TSH 0.705. Continue levothyroxine. (5) Meningioma: Code(s): D32.9 - Benign neoplasm of meninges, unspecified Status: Suspected Assessment and Plan: Incidental finding on MRI. Patient should have outpatient evaluation by neuro surgery. Time Spent With Patient Time: 45 minutes time spent with patient assessment; patient education; review of labs, vitals and imaging; discussion with consulting providers and review of nursing documentation. All questions answered to the best of my ability. Subjective Date/time seen: 06/30/22 17:17 Interval history: She jaron
[2022-06-30] MEDS: hydrALAZINE HCL 20 MG/ML VIAL 10 MG IV PUSH (18:09)
[2022-07-01] VITALS: PULSE 69
[2022-07-01 04:00] VITALS: PULSE 69
[2022-07-01] MEDS: LEVOTHYROXINE SODIUM 100 MCG TABLET PO (05:33)
[2022-07-01 06:00] VITALS: BP 141/71; PULSE 73; RESP 18; TEMP 36.8; O2SAT 96
[2022-07-01 08:00] VITALS: PULSE 84; RESP 18; O2SAT 96
[2022-07-01 08:38] LABS: Alanine Aminotransferase 30 U/L (6-35); Albumin Level 4.1 g/dL (3.5-5.1); Alkaline Phosphatase 74 U/L (38-126); Anion Gap 8 mmol/L (8-16); Aspartate Amino Transferase 33 U/L (14-36); Bilirubin,Total 1.2 mg/dL (0.2-1.3); Blood Urea Nitrogen 18 mg/dL (7-17); Calcium 9.2 mg/dL (8.4-10.2); Carbon Dioxide 26 mmol/L (22-30); Chloride 103 mmol/L (98-107); Estimated CRCL calculation 53 ml/min; Estimated Glomerular Filt Rate > 60; Glucose 96 mg/dL (65-110); Sodium 137 mmol/L (137-145)
[2022-07-01] MEDS: ATORVASTATIN 40 MG TABLET PO (09:31)
[2022-07-01] MEDS: ASCORBIC ACID 500 MG TABLET PO (09:31)
[2022-07-01] MEDS: CYANOCOBALAMIN 500 MCG TABLET PO (09:31)
[2022-07-01] MEDS: CLOPIDOGREL BISULFATE 75 MG TABLET PO (09:31)
[2022-07-01] MEDS: ASPIRIN 81 MG CHEWABLE TABLET PO (09:31)
[2022-07-01] MEDS: CHOLECALCIFEROL 1,000 UNITS TABLET 1000 UNITS PO (09:31)
[2022-07-01 09:32] VITALS: PULSE 84
[2022-07-01] MEDS: OMEGA 3 POLYUNSAT FATTY ACIDS 1 GM CAP PO (09:32)
[2022-07-01] MEDS: TRIAMCINOLONE ACET 0.1% CREAM 15 GM TUBE 1 APPLIC TOPICAL (09:32)
[2022-07-01] MEDS: LABETALOL HCL 100 MG TABLET PO (09:32)
[2022-07-01] MEDS: MICONAZOLE NITRATE 2% CREAM 30 GM TUBE 1 APPLIC TOPICAL (09:32)
[2022-07-01] MEDS: MULTIVITAMINS THERAPEUTIC TAB (*BKC) 1 TABLET PO (09:32)
[2022-07-01] MEDS: LOSARTAN POTASSIUM 50 MG TABLET PO (09:32)
[2022-07-01 09:48] LABS: Hematocrit 43.4 % (37.0-47.0); Hemoglobin 14.2 g/dL (12.0-15.0); Mean Corpuscular HGB Conc 32.7 g/dl (32-36); Mean Corpuscular Hemoglobin 31.3 pg (26-34); Mean Corpuscular Volume 95.8 fl (80-100); Mean Platelet Volume 10.1 fl (7.4-10.4); Platelet Count Result 305 k/mm3 (150-375); Red Blood Count 4.53 M/mm3 (4.2-5.4); Red Cell Distribution Width 12.7 % (11.5-14.5); White Blood Count 8.7 K/mm3 (4.5-10.0)
--- NOTE | 2022-07-01 12:11 | P.PNIM_ITS ---
Progress Note: A&P Assessment and Plan (1) Left-sided weakness: Code(s): R53.1 - Weakness Status: Acute Assessment and Plan: Patient had a 15 minute episode 06/27/22 afternoon where she felt off balance and as though her left foot was a bit discoordinated that resolved spontaneously. She developed weakness and heaviness in the left arm and leg upon waking 06/28/22 which persisted prompting her visit to ED. * CTA of the head and neck without acute infarct, aneurysm, or LVO. But given symptoms concern for TIA versus CVA. * Risk factors include: * hyperlipidemia (not on medication)- check lipid panel. * Significant HTN (SBP >200/95). she is compliant with her antihypertensives and reports her blood pressures are typically well controlled. Review of PCP office notes show BP 126/80-138/84 in the past year. Continue labetalol BID and PRN hydralazine SBP>185 or DBP> 110. Allow for permissive hypertension first 24 hours and slowly decrease by no more than 25%. * EKG shows sinus rhythm 62 bpm with minimal Qwaves high lateral leads. No prior EKG for comparison. Monitoring telemetry for arrythmia. * Continue neurologic checks q.4 hours. * Brain MRI shows acute infarct involving the right basal ganglia posterior limb right internal capsule * echocardiogram with bubble study shows no PFO/ASD, normal LV systolic function, EF 60-65%, grade 1 diastolic dysfunction, E/E 12 and mildly elevated and trace mitral and tricuspid valve regurgitation. H2FPEF score 57.9% risk HFpEF * 324 mg PO aspirin given in ED and started on aspirin 81 mg daily. * Plavix 75 mg p.o. daily x6 weeks initiated per Neurology * Lipid panel shows LDL and triglycerides 98. apo-B pending. Lipitor 40 mg p.o. daily started B12 and folate-within normal limits * homocysteine and MMA pending * vitamin D level due to gait instability-stable at 48 * A1c 5.4 % * Neurology has been consulted and appreciate recommendations * 06/30/2022 blood pressure still elevated 175/87, heart rate 73 this morning. Losartan 50 mg p.o. daily added and repeat BP 143/82. Hydralazine IV p.r.n. parameters decreased to give SBP greater than 150 and DBP greater than 90. Goal blood pressure optimally less than 130/80. Continue to adjust antihypertensives as needed. * 06/30/2022 patient reported increased weakness to left upper extremity and left lower extremity. Discussed with neurology who is in agreement repeat MRI of the brain was completed and did not show changed to acute infarct region however increased edema was noted. * 07/01 I have discussed this case neurology and they have cleared patient for discharge. Patient's blood pressure stable at 140/70. Discussed blood pressure logs and close follow-up with primary care provider. Patient and family verbalized their understanding. (2) Essential hypertension: Code(s): I10 - Essential (primary) hypertension Status: Chronic Assessment and Plan: Blood pressures have been running in the 180s to low 200s systolic upon presentation. * Continue BP management as above. (3) Mixed hyperlipidemia: Code(s): E78.2 - Mixed hyperlipidemia Status: Chronic Assessment and Plan: Documented history of hyperlipidemia though she is not currently on medication. 12/2021 lipid panel shows Triglycerides 108, LDL 129, non-HDL 151, HDL 73. * Lipid panel as above. * Apo-B level pending (4) Hypothyroidism: Qualifiers: Hypothyroidism type: acquired Qualified Code(s): E03.9 - Hypothyroidism, unspecified Code(s): E03.9 - Hypothyroidism, unspecified Sta
--- NOTE | 2022-07-01 12:16 | PM.DS ---
DS: Admitting Diagnosis Discharge Date 07/01/22 Admitting Diagnosis CVA DS: Discharge Diagnosis Discharge Diagnosis (1) Left-sided weakness: Code(s): R53.1 - Weakness Status: Acute Assessment and Plan: Patient had a 15 minute episode 06/27/22 afternoon where she felt off balance and as though her left foot was a bit discoordinated that resolved spontaneously. She developed weakness and heaviness in the left arm and leg upon waking 06/28/22 which persisted prompting her visit to ED. CTA of the head and neck without acute infarct, aneurysm, or LVO. But given symptoms concern for TIA versus CVA. Risk factors include: hyperlipidemia (not on medication)- check lipid panel. Significant HTN (SBP >200/95). she is compliant with her antihypertensives and reports her blood pressures are typically well controlled. Review of PCP office notes show BP 126/80-138/84 in the past year. Continue labetalol BID and PRN hydralazine SBP>185 or DBP> 110. Allow for permissive hypertension first 24 hours and slowly decrease by no more than 25%. EKG shows sinus rhythm 62 bpm with minimal Qwaves high lateral leads. No prior EKG for comparison. Monitoring telemetry for arrythmia. Continue neurologic checks q.4 hours. Brain MRI shows acute infarct involving the right basal ganglia posterior limb right internal capsule echocardiogram with bubble study shows no PFO/ASD, normal LV systolic function, EF 60-65%, grade 1 diastolic dysfunction, E/E 12 and mildly elevated and trace mitral and tricuspid valve regurgitation. H2FPEF score 57.9% risk HFpEF 324 mg PO aspirin given in ED and started on aspirin 81 mg daily. Plavix 75 mg p.o. daily x6 weeks initiated per Neurology Lipid panel shows LDL and triglycerides 98. apo-B pending. Lipitor 40 mg p.o. daily started B12 and folate-within normal limits homocysteine and MMA pending vitamin D level due to gait instability-stable at 48 A1c 5.4 % Neurology has been consulted and appreciate recommendations 06/30/2022 blood pressure still elevated 175/87, heart rate 73 this morning. Losartan 50 mg p.o. daily added and repeat BP 143/82. Hydralazine IV p.r.n. parameters decreased to give SBP greater than 150 and DBP greater than 90. Goal blood pressure optimally less than 130/80. Continue to adjust antihypertensives as needed. 06/30/2022 patient reported increased weakness to left upper extremity and left lower extremity. Discussed with neurology who is in agreement repeat MRI of the brain was completed and did not show changed to acute infarct region however increased edema was noted. 07/01 I have discussed this case neurology and they have cleared patient for discharge. Patient's blood pressure stable at 140/70. Discussed blood pressure logs and close follow-up with primary care provider. Patient and family verbalized their understanding. (2) Essential hypertension: Code(s): I10 - Essential (primary) hypertension Status: Chronic Assessment and Plan: Blood pressures have been running in the 180s to low 200s systolic upon presentation. Continue BP management as above. (3) Mixed hyperlipidemia: Code(s): E78.2 - Mixed hyperlipidemia Status: Chronic Assessment and Plan: Documented history of hyperlipidemia though she is not currently on medication. 12/2021 lipid panel shows Triglycerides 108, LDL 129, non-HDL 151, HDL 73. Lipid panel as above. Apo-B level pending (4) Hypothyroidism: Qualifiers: Hypothyroidism type: acquired Qualified Code(s): E03.9 - Hypothyroidism, unspecified Code(s): E03.9 - Hypothyroidism, unspecified Status: Chronic Assessment and Plan: TSH 0.705. Continue levothyroxine. (5) Meningioma: Code(s): D32.9 - Benign neoplasm of meninges, unspecified Status: Suspected Assessment and Plan: Incidental finding on MRI. Patient should have outpatient evaluation by neuro s
[2022-07-01 13:32] LABS: Appearance Urine Clear (Clear); Bacteria Urine None Seen /hpf; Bilirubin Urine Negative (Negative); Blood Urine Negative (Negative); Color Urine Dark Yellow (Yellow); Glucose Urine UA Negative (Negative); Ketones Urine Trace mg/dL (Negative); Leukocyte Esterase Ur Trace LEU/UL (Negative); Nitrate Urine Negative (Negative); Non Pathogenic Casts 0-2; Protein Urine Trace mg/dL (Negative); RBC Urine 0-2 /hpf (0-2); Specific Grav Ur 1.028 (1.001-1.035); Squamous Epithelial Cell Urine None seen /hpf (Few); WBC Urine 0-5 /hpf
[2022-07-01 13:49] LABS: Add Urine Microscopic? YES
[2022-07-01 15:58] VITALS: BP 138/70
[2022-07-03 06:33] LABS: Apolipoprotein B 89 mg/dL (<90)
[2022-07-04 01:00] LABS: Methylmalonic Acid 112 nmol/L (87-318)
== END 2022-07-01 16:15 | disposition home or self-care (01) | DRG 66 ==
LOC: ANHED 15:53 → ANH2MED 18:43
PROVIDERS: Nurse Practitioner Family; Physician Assistant; Admitting Provider Chiropractor; Emergency Provider Emergency Medicine; PCP Family Medicine; Visit Provider Internal Medicine Critical Care Medicine
DX: I63.9 Cerebral infarction, unspecified (principal); R53.1 Weakness; R26.89 Other abnormalities of gait and mobility; R29.702 NIHSS score 2; I10 Essential (primary) hypertension; E78.2 Mixed hyperlipidemia; E03.9 Hypothyroidism, unspecified; D32.9 Benign neoplasm of meninges, unspecified; F41.9 Anxiety disorder, unspecified; M47.816 Spondylosis without myelopathy or radiculopathy, lumbar region; E53.8 Deficiency of other specified B group vitamins; E55.9 Vitamin D deficiency, unspecified; Z85.89 Personal history of malignant neoplasm of other organs and systems; Z90.710 Acquired absence of both cervix and uterus; Z90.49 Acquired absence of other specified parts of digestive tract
CPT/HCPCS: 36415; 70496; 70498; 70553; 80048; 80053; 80061; 81001; 82172; 82306; 82607; 82746; 83036; 83090; 83735; 83921; 84443; 85025; 85027; 93005; 93306; 96375; 97112; 97116; 97161; 97165; 97530; 97535; 99285; A9270; A9577; G0378; J0360; Q9967

== ENCOUNTER 2022-11-18 00:22 | Day surgery (SDC) | payer MEDICARE, SELFPAY ==
[2022-11-12 15:38] VITALS: BMI 24.8
--- NOTE | 2022-11-12 15:43 | PC.NURSE ---
Report to the Outpatient Waiting Room, entrance under the green pavilion located off [address], at time ___09____ on date __11/18/22 . Planned Procedure Time: __1000 . Time changes happen often and if your time is changed the preop area will call you the afternoon before. - You and your visitor will be asked to self-screen and do not enter if you have any COVID symptoms. - A mask is optional within the hospital at this time. -MAY HAVE LIGHT BREAKFAST Take the following medications with a SIP of water the morning of surgery: ___REGULAR HOME MEDS DO NOT STOP ANY OF YOUR OTHER PRESCRIPTION MEDICATIONS PRIOR TO SURGERY ?EXCEPT THE FOLLOWING Medications to discontinue per physician _ASPIRIN PER DR DOTY'S INSTRUCTIONS Date to take last dose Please no make-up, nail hebrew, hairspray, perfume, deodorant, or body powder the day of surgery. No jewelry (including any body piercings) or valuables the day of surgery, leave them at home. Please take a shower or bath the night before, or the morning of, surgery with an antibacterial soap. Wear comfortable, loose fitting clothing. Children are encouraged to wear pajamas. - Jewelry must be removed prior to entering the operating room. Rings and piercings that are not removed may be cut off. - The hospital will not accept responsibility for valuables. - Please leave all valuables, including medications, at home the day of surgery. A licensed contract driver IS RECOMMENDED Follow any additional instructions given to you from your surgeon. If you or anyone in your household have experienced Covid symptoms in the past week, please notify your surgeon or the nurse liaison at the phone number below for possible testing. Telephone instructions given to ___PATIENT and asked if any additional questions and then verbalized understanding. Patient advised to call surgeon office or pre surgery nurse liaison [phone] if any additional questions.
[2022-11-18] VITALS (10 sets, daily range): BP systolic 130–147; BP diastolic 65–70; PULSE 56–62; RESP 12–16; O2SAT 96–99
--- NOTE | ~2022-11-18 | XR_ITS ---
EXAMINATION: XR hand RT 2V DATE: 11/18/2022 10:34 INDICATION: Lost needle TECHNIQUE: Posteroanterior and lateral views of the right hand were obtained. COMPARISON: None. FINDINGS: Bone alignment is normal. No fracture. Polyarticular osteoarthritis, moderate severity at the triscap he, first interphalangeal and third distal interphalangeal joints and mild at the first carpal metaca rpal and multiple metacarpal phalangeal and remaining interphalangeal joints. Soft tissues are unrema rkable with no radiopaque foreign bodies. IMPRESSION: 1. 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 No acute osseous abnormality or r adiopaque foreign bodies. Reviewed, dictated and finalized at location A. IMPRESSION: 1. 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 No acute os seous abnormality or radiopaque foreign bodies.
--- NOTE | 2022-11-18 07:20 | WPDHPUPDATE1 ---
History and Physical Update Update Date/Time: 11/18/22 07:20 History and Physical has been reviewed, including an updated exam of the patient. There are NO changes in the patient's condition. Risks, benefits, and alternatives have been discussed and questions answered. Patient agrees to proceed with procedure.
[2022-11-18] MEDS: LIDO 1%/EPINEPHRINE 1:100,000 20 ML VIAL 4 ML INFILTRATE (09:37)
[2022-11-18] MEDS: BACITRACIN OINTMENT 15 GM TUBE 1 APPLIC TOPICAL (10:07)
--- NOTE | 2022-11-18 10:39 | W.PM.PROC2 ---
Procedure Note - Detailed Date of Procedure 11/18/22 Pre-op Diagnosis Right Carpal Tunnel Synd Post-op Diagnosis Same Procedure Performed Right open carpal tunnel release Surgeon Terrell Urban MD Anesthesia Local Description of Procedure The right carpal tunnel was marked on the patient's wrist in the holding area with her consent. She was taken to the operating room where she was placed supine on the operating table. A time-out was held and confirmed. The site was remarked for the incision and locally infiltrated with 1% lidocaine with epinephrine. The procedure was done without tourniquet control. The incision was made and sharp and blunt dissection revealed the palmar aponeurosis. Same technique divided most of the palmar aponeurosis. The transverse retinaculum was opened with a 15 blade. Under 3 point retraction the ligament was divided distally and proximally for complete release. There was no unusual anatomy noted. The skin was closed with interrupted 5 0 nylon suture. The usual bandage was applied. She is discharged from the operating room stable condition. Estimated Blood Loss 2 Tourniquet Time 0 Drains No Packing No Pathology None sent Complications No immediate complications Condition Stable Disposition Same day
== END 2022-11-18 10:54 | disposition home or self-care (01) ==
PROVIDERS: PCP Family Medicine; Visit Provider Plastic Surgery
PROC: (CPT 64721; principal; 2022-11-18 10:00)
DX: G56.01 Carpal tunnel syndrome, right upper limb (principal)
CPT/HCPCS: 64721; 73120; A9270

== ENCOUNTER → 2023-04-19 15:15 | Outpatient (CLI) | payer MEDICARE, SELFPAY ==
--- NOTE | ~2023-04-19 | XR_ITS ---
EXAM: XR lumbar spine 2-3V DATE: 04/19/2023 15:41 HISTORY: M54.50 - Low back pain, unspecified . COMPARISON: 04/07/2016. FINDINGS: Cholecystectomy clips. 5 nonrib-bearing lumbar-type vertebral bodies. Pedicles intact. Trac e retrolistheses at L1-2 through L3-4. 7 mm anterolisthesis at L5-S1. Vertebral body heights preserve d. Multilevel moderate disc height loss and mild marginal osteophytosis. Facet cirrhosis and hypertro phy in the lower lumbar spine. Likely bilateral pars defects at L5. No fracture or dislocation. The c alcified fibroid is no longer seen in the pelvis. IMPRESSION: Grade 1 anterolisthesis at L5-S1, increased since the prior exam. Multilevel moderate deg enerative disc disease, also with interval progression. Moderate facet arthropathy in the lower lumba r spine. Likely bilateral pars defects at L5. Reviewed, dictated and finalized at location K. BLE MEDICAL EQUIPMENT TECHNICIAN IMPRESSION: Grade 1 anterolisthesis at L5-S1, increased since the prior exam. M ultilevel moderate degenerative disc disease, also with interval progression. M oderate facet arthropathy in the lower lumbar spine. Likely bilateral pars defe cts at L5.
--- NOTE | ~2023-04-19 | XR_ITS ---
EXAM: XR hip LT 2V w AP pelvis DATE: 04/19/2023 15:41 HISTORY: M25.559 - Pain in unspecified hip . COMPARISON: None available. FINDINGS: Normal mineralization. No fracture or dislocation. No lytic or blastic lesion. Mild bilate ral superior hip joint space narrowing. Mild scattered pelvic enthesopathy. Degenerative changes in t he lumbar spine. Cholecystomy clips. Pelvic phleboliths No erosion or periosteal change. Soft tissues within normal limits. IMPRESSION: Mild bilateral hip osteoarthritis. Reviewed, dictated and finalized at location K. AL DEPARTMENT SPECIALIST
== END ==
PROVIDERS: PCP Family Medicine; Visit Provider Family Medicine
DX: M47.817 Spondylosis without myelopathy or radiculopathy, lumbosacral region (principal); M47.816 Spondylosis without myelopathy or radiculopathy, lumbar region; M51.36 Other intervertebral disc degeneration, lumbar region; M16.0 Bilateral primary osteoarthritis of hip
CPT/HCPCS: 72100; 73502

== ENCOUNTER 2023-04-20 16:22 | Outpatient (CLI) | payer MEDICARE, SELFPAY ==
--- NOTE | ~2023-04-20 | MM_ITS ---
EXAMINATION: MM screening italo BI w keily HISTORY: Screening TECHNIQUE: Craniocaudal and mediolateral oblique 3-D tomosynthesis images were obtained and synthetic 2-D images were generated. CAD analysis was submitted and interpreted. COMPARISON: No prior mammogram is available for comparison at this institution. BREAST PARENCHYMAL COMPOSITION: Not dense: There are scattered areas of fibroglandular density. FINDINGS: There are asymmetries in the upper outer quadrant of both breasts. There are no suspicious calcifications or architectural distortion. IMPRESSION: 1. Bilateral breast asymmetries. 2. Additional mammographic views and possible breast ultrasound are recommended. BI-RADS Category 0: Incomplete: Needs additional imaging evaluation. Reviewed, dictated and finalized at location A. AUDITOR IMPRESSION: 1. Bilateral breast asymmetries. 2. Additional mammographic views and possible breast ultrasound are recommended . BI-RADS Category 0: Incomplete: Needs additional imaging evaluation.
== END 2023-04-20 16:23 | disposition home or self-care (01) ==
LOC: ANHIMG 16:24
PROVIDERS: PCP Family Medicine; Visit Provider Nurse Practitioner
DX: Z12.31 Encounter for screening mammogram for malignant neoplasm of breast (principal); R92.8 Other abnormal and inconclusive findings on diagnostic imaging of breast
CPT/HCPCS: 77063; 77067

== ENCOUNTER 2023-05-01 10:48 | Outpatient (CLI) | payer MEDICARE, SELFPAY ==
--- NOTE | ~2023-05-01 | DEXA_ITS ---
Bone Density Report Name: JOSE LUIS URIARTE Age: 72 Sex: Female Ethnicity: White Date of : 1950 Indication: postmenopausal; screening for osteoporosis; height loss; hysterectomy; Referring Provider: EVA, LISHA Study: Bone densitometry was performed. Exam Date: May 01, 2023 Accession number: [id number] Bone Density: Region BMD T-score Z-score Classification AP Spine(L1-L4) 1.062 0.1 2.3 Normal Femoral Neck (Left) 0.656 -1.7 0.1 Osteopenia Total Hip (Left) 0.845 -0.8 0.8 Normal Femoral Neck (Right) 0.684 -1.5 0.4 Osteopenia Total Hip (Right) 0.867 -0.6 1.0 Normal Total Hip Mean 0.856 -0.7 0.9 Normal World Health Organization criteria for BMD impression classify patients as: Normal (T-score at or above -1.0), Osteopenia (T-score between -1.0 and -2.5), or Osteoporosis (T-score at or below -2.5). 10-year Fracture Risk(1): Major Osteoporotic Fracture 10.0% Hip Fracture 1.7% Reported Risk Factors: [place] (), Neck BMD=0.656, BMI=37.3 (1) FRAX(R) Version 3.08. Fracture probability calculated for an untreated patient. Fracture probability may be lower if the patient has received treatment. Previous Exams: Region Exam Age BMD T-score BMD Change BMD Change Date g/cm2 vs Baseline vs Previous AP Spine (L1-L4) 05/01/2023 72 1.062 0.1 -0.044 (-4.0%) -0.010 (-0.9%) 11/22/2019 69 1.072 0.2 -0.034 (-3.0%) -0.034 (-3.0%) 03/22/2015 64 1.105 0.5 Total Hip(Left) 05/01/2023 72 0.845 -0.8 -0.172 (-16.9% -0.159 (-15.8% 11/22/2019 69 1.003 0.5 -0.013 (-1.3%) -0.013 (-1.3%) 03/22/2015 64 1.016 0.6 Total Hip(Right) 05/01/2023 72 0.867 -0.6 -0.155 (-15.2% -0.108 (-11.1% 11/22/2019 69 0.975 0.3 -0.048 (-4.6%) -0.048 (-4.6%) 03/22/2015 64 1.023 0.7 *Denotes significance at 95% confidence level, LSC for AP Spine = 0.022 g/cm2, LSC for Total Hip = 0.027 g/cm2 # Denotes dissimilar scan types or analysis methods Clinical Information Provided by Patient: Has used the following medications: Vitamin D Has the following medical conditions: Hysterectomy Patient maximum height was 62.5 Menopause Age: 57 Drinks caffeinated beverages Onset of menses at age 14 Number of children 1 Impression: The patient has low bone mass, based on the Left Femoral Neck T-score. The patient has an estimated ten-year risk of hip fracture of 1.7% and an estimated ten-year risk of ma
== END 2023-05-01 10:49 | disposition home or self-care (01) ==
PROVIDERS: PCP Family Medicine; Visit Provider Nurse Practitioner
DX: M85.89 Other specified disorders of bone density and structure, multiple sites (principal); Z78.0 Asymptomatic menopausal state
CPT/HCPCS: 77080

== ENCOUNTER 2023-05-25 10:48 | Outpatient (CLI) | payer MEDICARE, SELFPAY ==
--- NOTE | ~2023-05-25 | MMUS_ITS ---
EXAMINATION: MM diagnostic italo BI w keily, US breast BI complete HISTORY: Follow-up bilateral breast asymmetries TECHNIQUE: Additional 3-D tomosynthesis images of the breasts were performed and synthetic 2-D images were generated. CAD analysis was submitted and interpreted. High resolution bilateral complete breas t ultrasound was performed. COMPARISON: Comparison to multiple prior studies sequentially, with oldest reviewed study dated 07/09. BREAST PARENCHYMAL COMPOSITION: Dense: The breasts are heterogeneously dense, which may obscure small masses FINDINGS: MAMMOGRAPHIC FINDINGS: There are no suspicious masses, calcifications or architectural distortion in either breast to sugges t malignancy. ULTRASOUND: Complete bilateral US of all 4 quadrants of the breasts and retroareolar region was reviewed Right breast: At 1:00, 8 cm from the nipple, there is an oval hypoechoic mass measuring 6 x 5 x 2 mm without internal vascularity or posterior features. There is parallel orientation, likely benign. At 7:00, 2 cm from the nipple there is a cyst. Left breast: At 1:00, 3 cm from the nipple there is a 3 mm cyst. At 2:00, 4 cm from the nipple there is an irregular shaped hypoechoic mass with internal echoes measuring 7 x 5 x 4 mm. There is marginal vascularity. At 2:30, 4 cm from the nipple there is an irregular shaped partially solid hypoechoic i rregular 6 mm mass without associated vascularity. Mixed posterior attenuation. IMPRESSION: 1. Abnormal left breast masses located at 2:00 and 2:30. 2. Ultrasound-guided left breast biopsies recommended. BI-RADS category 4, suspicious findings. Reviewed, dictated and finalized at location A. IMPRESSION: 1. Abnormal left breast masses located at 2:00 and 2:30. 2. Ultrasound-guided left breast biopsies recommended. BI-RADS category 4, suspicious findings.
== END 2023-05-25 10:49 | disposition home or self-care (01) ==
PROVIDERS: PCP Family Medicine; Visit Provider Obstetrics & Gynecology Gynecology
DX: R92.8 Other abnormal and inconclusive findings on diagnostic imaging of breast (principal)
CPT/HCPCS: 76641; 77062; 77066; G0279

== ENCOUNTER 2023-08-30 09:54 | Outpatient (CLI) | payer MEDICARE, SELFPAY ==
--- NOTE | ~2023-08-30 | MR_ITS ---
MRI of the lumbar spine Clinical History: Back pain Technique: Axial T2-weighted images, and sagittal T1-weighted, T2-weighted, and T2 fat-sat images wer e acquired. Findings: There is no fracture of the lumbar spine. There is 4 mm anterolisthesis of L5 over S1. No s uspicious bone marrow signal abnormality. Schmorl's nodes of L2 are noted. At L1-L2, there is moderate degenerative disc narrowing. There is mild disc bulge and moderate facet arthropathy. No central canal stenosis or neural foraminal narrowing. At L2-L3, there is moderate to advanced degenerative disc narrowing. There is minimal disc bulge with moderate facet arthropathy. No central canal stenosis or definite neural foraminal narrowing. At L3-L4, there is moderate degenerative disc narrowing. There is mild disc bulge and moderate facet arthropathy. No central canal stenosis. There is mild right neural foraminal narrowing. Left neural f oramen preserved. At L4-L5, there is mild to moderate degenerative disc narrowing. There is mild disc bulge and moderat e to advanced facet arthropathy. No central canal stenosis. There is mild bilateral neural foraminal narrowing. At L5-S1, there is moderate degenerative disc narrowing. There is mild disc bulge with severe facet a rthropathy. No central canal stenosis. There is moderate bilateral neural foraminal narrowing. Paravertebral soft tissues are unremarkable. Impression: Moderate degenerative spondylosis, as above. 4 mm anterolisthesis of L5 over S1. Reviewed, dictated and finalized at [facility]. Impression: Moderate degenerative spondylosis, as above. 4 mm anterolisthesis of L5 over S1.
== END 2023-08-30 09:55 ==
LOC: MICIMG 09:55
PROVIDERS: PCP Family Medicine; Visit Provider Family Medicine
DX: M47.896 Other spondylosis, lumbar region (principal); M47.897 Other spondylosis, lumbosacral region
CPT/HCPCS: 72148

== ENCOUNTER 2024-02-29 14:13 | Outpatient (CLI) | payer MEDICARE, SELFPAY ==
[2024-02-29 15:06] LABS: Influenza A QL RT-PCR Negative (Negative); Influenza B QL RT-PCR Negative (Negative); RSV RNA, RT-PCR Negative (Negative); SARS-CoV-2 RNA PCR Negative (Negative)
== END 2024-02-29 14:14 | disposition home or self-care (01) ==
LOC: ANHLAB 14:15
PROVIDERS: PCP Family Medicine; Visit Provider Family Medicine
DX: J06.9 Acute upper respiratory infection, unspecified (principal)
CPT/HCPCS: 87637

== ENCOUNTER 2024-04-26 14:09 | Outpatient (CLI) | payer MEDICARE, SELFPAY ==
--- NOTE | ~2024-04-26 | MR_ITS ---
EXAMINATION: MR shoulder RT wo con DATE: 04/26/2024 15:03 INDICATION: Right shoulder pain TECHNIQUE: Magnetic resonance imaging (MRI) of the right shoulder was performed without intravenous c ontrast. Sequences included axial PD-weighted FS FSE, coronal oblique PD-weighted FS FSE, coronal obl ique T2-weighted FS FSE, sagittal PD-weighted FS FSE, and sagittal T1-weighted SE. COMPARISON: None. FINDINGS: Coracoacromial arch: The acromion undersurface is flat in morphology (type I). The coracoacromial ligament is normal. Mode rate acromioclavicular osteoarthritis. Rotator cuff: Mild to moderate supraspinatus tendinopathy with bursal sided fraying but without a clearly defined o r measurable tear defect. The infraspinatus and teres minor tendons are normal. Mild subscapularis te ndinopathy with complete tear involving the cephalad two thirds of the lesser tuberosity footplate of the tendon. The caudal third of the tendon remains intact as well as the bursal side of the more cep halad tendon remains contiguous with the intact transverse humeral ligament. There is negligible retr action of the torn portion of the tendon. The long head of the biceps tendon is subluxed across the m edial rim of the intertubercular groove and across the denuded portion of the lesser tuberosity footp late. There is asymmetric mild atrophy of the cephalad portion of the subscapularis muscle belly. Biceps tendon, glenoid labrum and glenohumeral cartilage: There is severe tendinopathy of the long head biceps tendon and mild partial-thickness tear centered at the junction of the internal extra articular portion of the tendon. Glenoid labrum is normal. Chele ohumeral cartilage is normal. Fluid: Mild increased fluid and synovitis in the long head biceps tendon sheath consistent with mild bicipit al tenosynovitis. Physiologic amount of fluid in the glenohumeral joint. No loose osteochondral sherrill s. Synovitis and small amount of fluid in the subacromial/subdeltoid bursa and with moderate amount f luid at the subcoracoid bursa consistent with bursitis. Bones: Bone alignment is normal. No fracture or pathologic marrow replacing process. Mild cystic change at t he cephalad aspect of the lesser tuberosity. IMPRESSION: 1. Mild subscapularis tendinopathy with tear involving the cephalad two thirds of the lesser tuberosi ty footplate and allowing medial subluxation long head biceps tendon across the medial rim of the int ertubercular groove and across the lesser tuberosity tear defect. 2. Moderate supraspinatus tendinopathy with bursal sided fraying. 3. Mild bicipital tenosynovitis with severe tendinopathy and likely mild partial thickness tear of th e long head biceps tendon centered at the junction of the intra-articular portion of the tendon. 4. Moderate subacromial/subdeltoid and subcoracoid bursitis. 5. Moderate acromioclavicular osteoarthritis. Reviewed, dictated and finalized at location B. H STILL OPERATOR IMPRESSION: 1. Mild subscapularis tendinopathy with tear involving the cephalad two thirds of the lesser tuberosity footplate and allowing medial subluxation long head bi ceps tendon across the medial rim of the intertubercular groove and across the lesser tuberosity tear defect. 2. Moderate supraspinatus tendinopathy with bursal sided fraying. 3. Mild bicipital tenosynovitis with severe tendinopathy and likely mild partia l thickness tear of the long head biceps tendon centered at the junction of the intra-articular portion of the tendon. 4. Moderate subacromial/subdeltoid and subcoracoid bursitis. 5. Moderate acromioclavicular osteoarthritis.
== END 2024-04-26 14:10 | disposition home or self-care (01) ==
LOC: GOSHIMG 14:10
PROVIDERS: PCP Family Medicine; Visit Provider Family Medicine
DX: M25.511 Pain in right shoulder (principal); M75.81 Other shoulder lesions, right shoulder; S43.491A Other sprain of right shoulder joint, initial encounter; S43.081A Other subluxation of right shoulder joint, initial encounter; X58.XXXA Exposure to other specified factors, initial encounter; M75.21 Bicipital tendinitis, right shoulder; M75.51 Bursitis of right shoulder; M19.011 Primary osteoarthritis, right shoulder
CPT/HCPCS: 73221

== ENCOUNTER 2024-05-02 11:29 | Outpatient (CLI) | payer MEDICARE, SELFPAY ==
--- NOTE | ~2024-05-02 | XR_ITS ---
XR shoulder RT min 2V Ordering provider: JUAN RAMON Miranda History: . M25.511 - Pain in right shoulder . Comparison: None. FINDINGS: BONES: No acute fracture or dislocation. Degenerative changes in the greater tuberosity. JOINT SPACES: The acromioclavicular joint shows mild osteoarthritic changes. The glenohumeral joint i s normal. SOFT TISSUES: Normal. IMPRESSION: No acute osseous abnormality right shoulder. Reviewed, dictated and finalized at location A.
--- OUTSIDE RECORDS SUMMARY | 2024-05-02 13:18 | XMS_ITS | CONTINUITY OF CARE DOCUMENT ---
Author Name armand acuna Address Unknown Organization [facility] Address [id number] [place] [address] [address] [place] [address] Phone [phone] Care Team Providers Care Pay Station Department Manager Name Role Phone armand acuna Unavailable Unavailable
--- OUTSIDE RECORDS SUMMARY | 2024-05-02 13:18 | XMS_ITS | Encounter Summary ---
Author Organization [facility] Health Address [address] [facility] [place] [address] Care Team Providers Care Billet Bed Operator Name Role Phone Dawn Andujar MD Primary Care Provider [phone] Encounter Details Date Type Department Care Team (Late st Contact Info) Description 09/07/2022 Lab Requisition [facility] - DermPath Lab [address] [place] [address] Lindsey Granda DO [address] [facility] [address] [place] [address] Social History Tobacco Use Types Packs/Day Years Used Date Smoking Tobacco: Passive Smo ke Exposure - Never Smoker Smokeless Tobacco: Never Alcohol Use Standard Drinks/Week Comments Yes 0 (1 standard drink = 0.6 oz pur e alcohol) Sex and Gender Information Value Date Recorded Sex Assigned at Not on file Gender Identity Not on file Sexual Orientation Not on file documented as of this encounter Plan of Treatment Not on file documented as of this encounter Procedures Procedure Name Priority Date/Time Associated Diagnosis Comments DERMATOPATHOLOGY Routine 09/07/2022 11:1 5 AM CDT documented in this encounter Results * DERMATOPATHOLOGY (09/07/2022 11:15 AM CDT) Case Report Dermatopathology Report Case: [id number] Authorizing Provider: Lindsey Granda DO Collected: 09/07/2022 11:15 AM Ordering Location: [facility] DermPath Lab Received: 09/07/2022 04:34 PM Pathologist: Linnea Mann MD Specimen: Skin, left post leg 3 6:57 PM CDT DERMATOPATHOLOGY LABORATORY Final Diagnosis Specimen A. SKIN, left post leg: DERMAL SCAR RESIDUAL BASAL CELL CARCINOMA NOT IDENTIFIED (L90.5) 3 6:57 PM CDT DERMATOPATHOLOGY LABORATORY Clinical History BCC 3 6:57 PM CDT DERMATOPATHOLOGY LABORATORY Gross Description Specimen A: Received is one formalin filled container labeled with the patient's name and designated left post leg. The specimen consists of a non-oriented ellipse of skin measuring 38i85n5 mm. The epidermal surface is unremarkable. The margin is inked green. The 12 o'clock and 6 o'clock tips are submitted in cassette 1. The remainder of the ellipse is serially sectioned and submitted in cassette 2-3. Jar 0. 3 6:57 PM CDT DERMATOPATHOLOGY LABORATORY Microscopic Description Specimen A. SKIN, left post leg: There are fibroblasts and collagen bundles oriented parallel to the skin surface. There are elongated blood vessels, some of which are oriented perpendicular to the skin surface. No basal cell carcinoma is identified. 3 6:57 PM CDT DERMATOPATHOLOGY LABORATORY Disclaimer An external and internal positive and negative controls are appropriate for the histochemical, immunohistochemical and immunofluorescence stain(s) in this case (if any), except where stated explicitly. The performance characteristics of the stain(s) cited in this report were developed and its performance characteristic determined by the Dermatopathology Laboratory at [facility], directed by Dr. Deepthi Espinoza. These tests need not be, and therefore are not, approved by the [place] Food and Drug Administration. The tests are used for clinical purposes. Billing Codes Specimen Charges Stain Charges 91438 1 3 6:57 PM CDT DERMATOPATHOLOGY LABORATORY Embedded Images 3 6:57 PM CDT DERMATOPATHOLOGY LABORATORY Pathology/Cytolo gy TISSUE SPECIMEN FROM SKIN / Unknown 09/07/2022 11:15 AM CDT 09/07/2022 4:34 PM CDT Lindsey Granda DO LAB - PATHOLOGY/C YTOLOGY ORDERABLES DERMATOPATHOLOGY LABORATORY [facility] - Department of Dermatology [facility] Specialized Medicine [address] [place] [address], [address] Floor [address] [phone] documented in this encounter Visit Diagnoses Not on filedocumented in this encounter Care Teams Billet Bed Operator Relationship Specialty Start Date End Date Dawn Andujar MD PCP - General 08/08/18 documented as of this encounter
--- OUTSIDE RECORDS SUMMARY | 2024-05-02 13:18 | XMS_ITS | Clinical Summary ---
Author Organization [facility] Address [address] [place] [address] Phone Care Team Providers Care Sizing Machine Operator Name Role Phone Provider, None Primary Care Provider Unavailabl e Allergies No known active allergies Medications indapamide (LOZOL) 1.25 MG Tablet Take 1 Tablet by mouth every morning. 30 Tablet 12/25/2020 Active Social History Tobacco Use Types Packs/Day Years Used Date Smoking Tobacco: Never Smokeless Tobacco: Never Alcohol Use Standard Drinks/Week Comments Not Currently 0 (1 standard drink = 0.6 oz pur e alcohol) occassion Comments No Sex and Gender Information Value Date Recorded Sex Assigned at Not on file Legal Sex Female 7:58 PM CDT Gender Identity Not on file Sexual Orientation Not on file Last Filed Vital Signs Vital Sign Reading Time Taken Comments Blood Pressure 166/84 12/25/2020 11:00 PM CDT Pulse 64 12/25/2020 11:00 PM CDT Temperature 36.6 C (97.8 F) 12/25/2020 7:49 PM CDT Respiratory Rate 24 12/25/2020 11:00 PM CDT Oxygen Saturation 100% 12/25/2020 11:00 PM CDT Inhaled Oxygen Concentration - - Weight 63.5 kg (140 lb) 12/25/2020 7:49 PM CDT Height 157.5 cm (5' 2 ) 12/25/2020 7:49 PM CDT Body Mass Index 25.61 12/25/2020 7:49 PM CDT Plan of Treatment Health Maintenance Due Date Last Done Comments DEXA Bone Density 1950 Hepatitis C Virus (HCV) Screening 1950 Cologuard 09/17/2001 Immunochemical Fecal Occult Blood 09/17/2001 Mammogram 09/17/2001 Zoster Immunization (1 of 2) 09/17/2001 Pneumococcal Immunization (50+ years) (2 of 2 - PCV) 10/20/2017 10/20/2016 Colonoscopy 07/15/2022 07/15/2012 Colorectal Cancer Screening 07/15/2022 Influenza Immunization (#1) 10/24/202311/23, 12/18/2019, 12/22/2018, Additional history exists SARS-COV-2 Immunization ( season) 2023 03/05/2021, 05/28/2020, 05/05/2020 Respiratory Syncytial Virus (RSV) Immunization (Adult) (1 - 1-dose 75+ series) 09/17/2026 07/15/2012 TdaP Immunization Completed 06/28/2006 DTaP/Tdap/Td Immunization Discontinued 10/20/2016, 08/2006 Hepatitis B Immunization Aged Out No longer eligible based on patient's age to complete this topic Meningococcal Immunization (ACWY) Aged Out No longer eligible based on patient's age to complete this topic Rotavirus Immunization Aged Out No lo nger eligible based on patient's age to complete this topic Procedures Procedure Name Priority Date/Time Associated Diagnosis Comments COLONOSCOPY Routine 07/15/2012 from Last 3 Months or Most Recently Relevant to Health Maintenance Results * COLONOSCOPY (07/15/2012) Kwadwo Leonard DO PROCEDURE/MINOR SURGICAL ORDERA BLES Final Result from Last 3 Months or Most Recently Relevant to Health Maintenance Insurance [facility] MEDICARE Care Teams Sizing Machine Operator Relationship Specialty Start Date End Date Provider, None [place] PCP - General 12/25/20
--- OUTSIDE RECORDS SUMMARY | 2024-05-02 13:18 | XMS_ITS | Referral Summary ---
Author Organization [facility] [address] Address [address] [place] [address] Care Team Providers Care Seedling Puller Name Role Phone Bambi Newberry MD Primary Care Provider [phone] Carlita Ordaz MD Unavailable [phone] Encounters Date Type Department Care Team Description 04/06/2024 Telephone [facility] Surgery [facility] [address] [place] [address] Elena Lipscomb NP Scheduling Appointments from Last 3 Months Allergies No known active allergies Medications aspirin 81 mg chewable tablet CHEW AND SWALLOW 1 TABLET BY MOUTH DAILY AT 8 AM Active cholecalciferol (VITAMIN D-3) 2000 unit tablet Take 1 tablet (2,000 Units total) by mouth daily Active labetaloL (NORMODYNE,NAYAK DATE) 100 mg tablet 4 Active levothyroxine (SYNTHROID) 88 mcg tablet 4 Active levothyroxine (SYNTHROID) 100 mcg tablet TAKE 1 TABLET BY MOUTH EVERY OTHER DAY ALTERNATING WITH 88MCG Active losartan (COZAAR) 100 mg tablet Take 1 tablet (100 mg total) by mouth daily 4 Active rosuvastatin (CRESTOR) 5 mg tablet Take 1 tablet (5 mg total) by mouth daily 4 Active ascorbic acid (VITAMIN C) 250 mg tablet Take 1 tablet (250 mg total) by mouth daily Active cyanocobalamin (Vitamin B-12) 500 mcg tablet Take 1 tablet (500 mcg total) by mouth daily Active LORazepam (ATIVAN) 0.5 mg tablet Take 1 tablet (0.5 mg total) by mouth every 6 (six) hours as needed Active pedi mv no.189/ferrous sulfate (POLY--FELIPE WITH IRON ORAL) Take 1 mL by mouth daily Active Active Problems No known active problems Social History Tobacco Use Types Packs/Day Years Used Date Smoking Tobacco: Never Assessed Comments Unknown Sex and Gender Information Value Date Recorded Sex Assigned at Not on file Legal Sex Female 2:11 PM CONFIGURATION MANAGEMENT ADVISOR Gender Identity Not on file Sexual Orientation Not on file Last Filed Vital Signs Vital Sign Reading Time Taken Comments Blood Pressure - - Pulse - - Temperature - - Respiratory Rate - - Oxygen Saturation - - Inhaled Oxygen Concentration - - Weight 63.5 kg (140 lb) 02/01/2024 10:36 AM CONFIGURATION MANAGEMENT ADVISOR Height 160 cm (5' 3 ) 02/01/2024 10:36 AM CONFIGURATION MANAGEMENT ADVISOR Body Mass Index 24.8 02/01/2024 10:36 AM CONFIGURATION MANAGEMENT ADVISOR Plan of Treatment Not on file Insurance MEDICARE [facility] MEDICARE [facility] MEDICARE [facility] Care Teams Seedling Puller Relationship Specialty Start Date End Date Bambi Newberry MD PCP - General Family Medicine 07/08/22 Carlita Ordaz MD [address] [place] [address] Referring Physician Gynecology 06/09/23
--- OUTSIDE RECORDS SUMMARY | 2024-05-02 13:18 | XMS_ITS | Encounter Summary ---
Author Organization [facility] Health Address [address] [place] [address] Care Team Providers Care Business Practices Officer Name Role Phone Dawn Andujar MD Primary Care Provider [phone] Encounter Details Date Type Department Care Team (Late st Contact Info) Description 08/09/2023 Lab Requisition [facility] - DermPath Lab [address] [facility] [place] [address] Lindsey Granda DO [address] [facility] [address] [place] [address] Social History Tobacco Use Types Packs/Day Years [...] Priority Date/Time Associated Diagnosis Comments DERMATOPATHOLOGY Routine 08/09/2023 10:3 4 AM CDT documented in this encounter Results * DERMATOPATHOLOGY (08/09/2023 10:34 AM CDT) Case Report Dermatopathology Report Case: [id number] Authorizing Provider: Lindsey Granda DO Collected: 08/09/2023 10:34 AM Ordering Location: [facility] - Received: 08/10/2023 06:53 AM DermPath Lab Pathologist: Linnea Mann MD Specimens: A) - Skin, right chest B) - Skin, left cheek C) - Skin, left anterior lower extremity 12:[address] [facility] DERMATOPATHOLOGY LABORATORY Final Diagnosis Specimen A. SKIN, right chest: BASAL CELL CARCINOMA, NODULAR TYPE (C44.519) Specimen B. SKIN, left cheek: SQUAMOUS PROLIFERATION (D48.5) (see microscopic description and comment) Specimen C. SKIN, left anterior lower extremity: BASAL CELL CARCINOMA, NODULAR TYPE (C44.719) 12:[address] [facility] DERMATOPATHOLOGY LABORATORY Clinical History A-C: R/O NMSC 12:[address] [facility] DERMATOPATHOLOGY LABORATORY Gross Description Specimen A: Received is one formalin filled container labeled with the patient's name and designated right chest. The specimen consists of a shave biopsy measuring 5x4x1 mm. Jar 0. Specimen B: Received is one formalin filled container labeled with the patient's name and designated left cheek. The specimen consists of a shave biopsy measuring 5x3x1 mm. Jar 0. Specimen C: Received is one formalin filled container labeled with the patient's name and designated left anterior lower extremity. The specimen consists of a shave biopsy measuring 7x5x1 mm. Jar 0. 12:[address] [facility] DERMATOPATHOLOGY LABORATORY Microscopic Description Specimen A. SKIN, right chest: Within the dermis there are aggregates of basaloid cells with a high nuclear to cytoplasmic ratio and peripheral palisading. Specimen B. SKIN, left cheek: Sections show maturational disarray and nuclear pleomorphism of keratinocytes extending throughout the full thickness of the specimen. There is focal parakeratosis. The base of this lesion is not visualized. Additional deeper sections were obtained and reviewed. COMMENT: The histological differential diagnosis includes an irritated and inflamed benign keratosis, favored, an actinic keratosis, and less likely a squamous cell carcinoma. Specimen C. SKIN, left anterior lower extremity: Within the dermis there are aggregates of basaloid cells with a high nuclear to cytoplasmic ratio and peripheral palisading. 12:[address] [facility] DERMATOPATHOLOGY LABORATORY Disclaimer An external and internal positive and negative controls are appropriate for the histochemical, immunohistochemical and immunofluorescence stain(s) in this case (if any), except where stated explicitly. The performance characteristics of the stain(s) cited in this report were developed and its performance characteristic determined by the Dermatopathology Laboratory at [facility], directed by Dr. Deeptih Espinoza. These tests need not be, and therefore are not, approved by the [place] Food and Drug Administration. The tests are used for clinical purposes. Billing Codes Specimen Charges Stain Charges 03884 87231 49150 1 1 1 4 12:26 PM CDT DERMATOPATHOLOGY LABORATORY Embedded Images 4 12:26 PM CDT DERMATOPATHOLOGY LABORATORY Pathology/Cytology TISSUE SPECIMEN FROM SKIN / Unknown 08/09/2023 10:34 AM CDT 08/10/2023 6:53 AM CDT Miscellaneous samples (specimen) TISSUE SPECIMEN FROM SKIN / Unknown 08/09/2023 10:34 AM CDT 08/10/2023 6:53 AM CDT Miscellaneous samples (specimen) TISSUE SPECIMEN FROM SKIN / Unknown 08/09/2023 10:34 AM CDT 08/10/2023 6:53 AM CDT Lindsey Granda DO LAB - PATHOLOGY/C YTOLOGY ORDERABLES DERMATOPATHOLOGY LABORATORY [facility] - Department of Dermatology [facility] Medicine [address] [place] [address], [address] [phone] documented in this encounter Visit Diagnoses Not on filedocumented in this encounter Care Teams Business Practices Officer Relationship Specialty Start Date End Date Dawn Andujar MD PCP - General 08/08/18 documented as of this encounter
--- OUTSIDE RECORDS SUMMARY | 2024-05-02 13:18 | XMS_ITS | Clinical Summary ---
Author Organization [facility] [address] Address [address] [place] [address] Care Team Providers Care Appliance Counselor Name Role Phone Bambi Newberry MD Primary Care Provider [phone] Carlita Ordaz MD Unavailable [phone] Allergies No known active allergies Medications aspirin [...] Active Active Problems No known active problems Encounters Date Type Department Care Team Description 04/06/2024 Telephone [facility] Surgery [facility] Floor [address] [place] [address] Elena Lipscomb NP Scheduling Appointments from Last 3 Months Medical History Medical History Date Comments Stroke (HCC) Depression Hypertension Thyroid disease Social History Tobacco Use Types Packs/Day Years Used Date Smoking Tobacco: Never Assessed Comments Unknown Sex and Gender Information Value Date Recorded Sex Assigned at Not on file Legal Sex Female 2:11 PM TRAINING ASSOCIATE Gender Identity Not on file Sexual Orientation Not on file Obstetrics History Last Filed Vital Signs Vital Sign Reading Time Taken Comments Blood Pressure - - Pulse - - Temperature - - Respiratory Rate - - Oxygen Saturation - - Inhaled Oxygen Concentration - - Weight 63.5 kg (140 lb) 02/01/2024 10:36 AM TRAINING ASSOCIATE Height 160 cm (5' 3 ) 02/01/2024 10:36 AM TRAINING ASSOCIATE Body Mass Index 24.8 02/01/2024 10:36 AM TRAINING ASSOCIATE Plan of Treatment Health Maintenance Due Date Last Done Comments Breast Cancer Screening-Mammogram 1950 Colon Cancer Screening-Colonoscopy 1950 Depression Screening 1950 Fall Risk Assessment 1950 Hepatitis C Screening 1950 Osteoporosis Screening-Bone Density Scan 1950 Hepatitis B Screening 09/17/1969 Zoster Vaccine (1 of 2) 09/17/2001 Well Visit 65+ 09/17/2016 Pneumococcal vaccine 65+ (2 of 2 - PCV) 11/22/2017 11/22/2016, 10/20/2016 Covid-19 Vaccine (3 - 2023-2 5 season) 2023 05/28/2020, 05/05/2020 Influenza Vaccine (#1) 2023 , 12/18/2019, 12/22/2018, Additional history exists DTaP/Tdap/Td Vaccine (3 - Td or Tdap) 10/20/2026 10/20/2016, 06/28/2006 Insurance MEDICARE [facility] MEDICARE [facility] MEDICARE [facility] Care Teams Appliance Counselor Relationship Specialty Start Date End Date Bambi Newberry MD PCP - General Family Medicine 07/08/22 Carlita Ordaz MD [address] [facility] [address] [place] [address] Referring Physician Gynecology 06/09/23
--- OUTSIDE RECORDS SUMMARY | 2024-05-02 13:19 | XMS_ITS | Clinical Summary ---
Author Organization [facility] Address [facility] access hospital[address] [place] [address] Care Team Providers Care Parachutist/Combatant Diver Qualified Name Role Phone Bambi Newberry MD Primary Care Provider [phone] Allergies No known active allergies Medications levothyroxine (SYNTHROID) 88 MCG tablet Take 1 tablet (88 mcg total) by mouth every morning. Active levothyroxine (SYNTHROID) 100 MCG tablet Take 1 tablet (100 mcg total) by mouth every morning. Alternates with 88 mcg Active labetalol (NORMODYNE) 100 MG tablet Take 1 tablet (100 mg total) by mouth 2 (two) times daily. Active losartan (COZAAR) 100 MG tablet Take 1 tablet (100 mg total) by mouth daily. Active rosuvastatin (CRESTOR) 5 MG tablet Take 1 tablet (5 mg total) by mouth nightly at bedtime. Active aspirin 81 MG chewable tablet Chew 1 tablet (81 mg total) by mouth daily. Active [place]-3 Fatty Acids (FISH OIL) 500 MG capsule Take 1,000 mg by mouth daily. Active vitamin D3 (CHOLECALCIFEROL) 25 mcg tablet Take 1 tablet (25 mcg total) by mouth daily. Active vitamin B-12 (CYANOCOBALAMIN) 500 MCG tablet Take 1 tablet (500 mcg total) by mouth daily. Active IRON containing peds multivitamin (POLY--FELIPE/IRON ) 11 MG/ML solution Take 1 mL by mouth daily. Active LORazepam (ATIVAN) 0.5 MG tablet Take 1 tablet (0.5 mg total) by mouth every 6 (six) hours as needed for Anxiety. Active Garlic 2 MG Cap Take 1,000 mg by mouth daily. Active Multiple Vitamin (MULTIVITAMIN ADULT OR) Take 1 tablet by mouth daily. Active vitamin C (ASCORBIC ACID) 250 MG tablet Take 1 tablet (250 mg total) by mouth daily. Active Active Problems Problem Noted Date Diagnosed Date S/P total hysterectomy and B SO (bilateral salpingo-oophorectomy) 07/12/2017 Malignant neoplasm of endometrium (CMS/HCC HHS/H CC) 05/13/2017 Resolved Problems Problem Noted Date Diagnosed Date Resolved Date Screening for colon cancer 08/24/2023 0 08/30/2023 Screening for colon cancer 08/24/2023 0 11/01/2023 Social History Tobacco Use Types Packs/Day Years Used Date Smoking Tobacco: Never Passive Smoke Exposure: Never Smokeless Tobacco: Never Tobacco Cessation:Counseling Given: No Alcohol Use Standard Drinks/Week Comments Yes 0 (1 standard drink = 0.6 oz pure alcohol) occasionally-couple beers a week Comments No Sex and Gender Information Value Date Recorded Sex Assigned at Not on file Legal Sex Female 4:57 PM CDT Gender Identity Not on file Sexual Orientation Not on file Last Filed Vital Signs Vital Sign Reading Time Taken Comments Blood Pressure 146/72 11/04/2023 11:08 AM CDT Pulse 55 11/04/2023 11:08 AM CDT Temperature 34.3 C (93.8 F) 11/04/2023 10:50 AM CDT Respiratory Rate 18 11/04/2023 11:08 AM CDT Oxygen Saturation 98% 11/04/2023 11:08 AM CDT Inhaled Oxygen Concentration - - Weight 63.5 kg (140 lb) 10/26/2023 9:59 AM CDT Height 157.5 cm (5' 2 ) 10/26/2023 9:59 AM CDT Body Mass Index 25.61 10/26/2023 9:59 AM CDT Plan of Treatment Health Maintenance Due Date Last Done Comments PHQ-2 (Physician [place]) 1962 Hepatitis C 09/17/1969 Mammogram Screening 1991 Zoster Vaccines (1 of 2) 09/17/2001 Annual Medicare Wellness Visit 09/17/2016 Dexa Scan (General) 09/17/2016 Pneumococcal Vaccine: 65+ Years (2 of 2 - PCV) 11/22/2017 11/22/2016, 10/20/2016 COVID-19 Vaccine ( season) 2023 11/27/2022, 11/12/2021, 03/05/2021, Additional history exists Influenza Adult (#1) 2023 12/22/2018, 11/23/2017, 12/08/2016, Additional history exists PHQ-2 (Physician [place]) 02/23/2024 RSV Immunization or 60+ Years (1 - 1-dose 75+ series) 09/17/2026 DTaP, Tdap and Td Vaccines (3 - Td or Tdap) 10/20/2026 10/20/2016, 06/28/2006 Colorectal Cancer Screening Colonoscopy (10 Years) 11/03/2033 11/04/2023 Meningococcal B Vaccine Aged Out No l onger eligible based on patient's age to complete this topic Meningococcal Vaccine Aged Out No eleni wilton eligible based on patient's age to complete this topic RSV Immunizations Under 20 Months Aged Out No longer eligible based on patient's age to complete this topic Insurance MEDICARE [facility] Care Teams Parachutist/Combatant Diver Qualified Relationship Specialty Start Date End Date Bambi Newberry MD [address] [place] [address] PCP - General FAMILY PRACTICE 08/11/23
--- OUTSIDE RECORDS SUMMARY | 2024-05-02 13:19 | XMS_ITS | Referral Summary ---
Author Organization [facility] Address [address] [facility] [place] [address] Care Team Providers Care Milling General Superintendent Name Role Phone Dawn Andujar MD Primary Care Provider [phone] Source Comments [facility],non-owned Affiliates and Associated Physician Practices is amultiple site organization consisting of ambulatory clinics and hospital sitesin [place], [place], [place]. This disclosure is being madepursuant to the Care Everywhere program and may not contain all information available regarding this patient. Last updated [employer] [facility] Allergies No known active allergies Medications * Be aware that medications may not be up to date on this document. Alwaysverify current medications with the patient. Medication Sig Dispensed Refills Start Date End Date Status indapamide (LOZOL) 2.5 MG tablet Take 2.5 mg by mouth Every Morning. 05/13/2017 Active aspirin (ASPIRIN) 81 MG chew tablet Take by mouth. 05/13/2017 Active [place]-3 Fatty Acids (FISH OIL) 1200 MG Take by mouth. 05/13/2017 Ac tive Garlic 1000 MG Take by mouth. 05/13/2017 Active Vitamins/Minerals TABS Take by mouth. 05/13/2017 Active Probiotic Product (ACIDOPHILUS/GOAT MILK) CAPS Take by mouth. 05/13/2017 Active levothyroxine (SYNTHROID) 100 MCG tablet 3 05/10/2017 Active Vitamin D3, cholecalciferol, 2000 UNITS tablet Take 2,000 Units by mouth once daily Active Active Problems Problem Noted Date Diagnosed Date S/P total hysterectomy and B SO (bilateral salpingo-oophorectomy) 07/12/2017 MARCELLE (stress urinary incontinence, female) 2017 Malignant neoplasm of endometrium 05/13/2017 Social History Tobacco Use Types Packs/Day Years [...] Sign Reading Time Taken Comments Blood Pressure 120/80 07/25/2018 9:24 AM CDT Pulse - - Temperature - - Respiratory Rate - - Oxygen Saturation - - Inhaled Oxygen Concentration - - Weight 68 kg (150 lb) 07/25/2018 9:24 AM CDT Height 160 cm (5' 3 ) 07/25/2018 9:24 AM CDT Body Mass Index 26.57 07/25/2018 9:24 AM CDT Plan of Treatment Not on file Care Teams Milling General Superintendent Relationship Specialty Start Date End Date Dawn Andujar MD PCP - General 08/08/18
--- OUTSIDE RECORDS SUMMARY | 2024-05-02 13:19 | XMS_ITS | Encounter Summary ---
Author Organization [facility] Health Address [address] [facility] [place] [address] Care Team Providers Care Summer Babysitter Name Role Phone Dawn Andujar MD Primary Care Provider +1- [phone] Encounter Details Date Type Department Care Team (Late st Contact Info) Description 09/14/2022 Lab Requisition [facility] - DermPath Lab [address] [facility], [place] [address] Lindsey Granda DO [address] [facility] 3 [place] [address] Social History Tobacco Use Types Packs/Day Years [...] Priority Date/Time Associated Diagnosis Comments DERMATOPATHOLOGY Routine 09/14/2022 3:05 PM CDT documented in this encounter Results * DERMATOPATHOLOGY (09/14/2022 3:05 PM CDT) Case Report Dermatopathology Report Case: [id number] Authorizing Provider: Lindsey Granda DO Collected: 09/14/2022 03:05 PM Ordering Location: [facility] DermPath Lab Received: 09/15/2022 12:38 PM Pathologist: Ashanti Cheng MD Specimen: Skin, post left arm 3 11:31 AM CDT DERMATOPATHOLOGY LABORATORY Final Diagnosis Specimen A. SKIN, post left arm: DERMAL SCAR RESIDUAL SQUAMOUS CELL CARCINOMA NOT IDENTIFIED (L90.5) 3 11:31 AM T DERMATOPATHOLOGY LABORATORY Clinical History R/O: SCC IN SITU 11:31 AM CDT DERMATOPATHOLOGY LABORATORY Gross Description Specimen A: Received is one formalin filled container labeled with the patient's name and designated post left arm. The specimen consists of a non-oriented ellipse of skin measuring 53w89y4 mm. The epidermal surface is unremarkable. The margin is inked green. The 12 o'clock and 6 o'clock tips are submitted in cassette 1. The remainder of the ellipse is serially sectioned and submitted in cassette 2-3. Jar 0. 3 11:31 AM CDT DERMATOPATHOLOGY LABORATORY Microscopic Description Specimen A. SKIN, post left arm: There are fibroblasts and collagen bundles oriented parallel to the skin surface. There are elongated blood vessels, some of which are oriented perpendicular to the skin surface. No residual squamous cell carcinoma is identified. 3 11:31 AM CDT DERMATOPATHOLOGY LABORATORY Disclaimer An external and internal positive and negative controls are appropriate for the histochemical, immunohistochemical and immunofluorescence stain(s) in this case (if any), except where stated explicitly. The performance characteristics of the stain(s) cited in this report were developed and its performance characteristic determined by the Dermatopathology Laboratory at [facility], directed by Dr. Deepthi Espinoza. These tests need not be, and therefore are not, approved by the [place] Food and Drug Administration. The tests are used for clinical purposes. Billing Codes Specimen Charges Stain Charges 25682 1 3 11:31 AM CDT DERMATOPATHOLOGY LABORATORY Embedded Images 3 11:31 AM CDT DERMATOPATHOLOGY LABORATORY Pathology/Cytolo gy TISSUE SPECIMEN FROM SKIN / Unknown 09/14/2022 3:05 PM CDT 09/15/2022 12:38 PM CDT Lindsey Granda DO LAB - PATHOLOGY/C YTOLOGY ORDERABLES DERMATOPATHOLOGY LABORATORY [facility] - Department of Dermatology [facility] [address] [place] [address], [address]rd Floor [address] [phone] documented in this encounter Visit Diagnoses Not on filedocumented in this encounter Care Teams Summer Babysitter Relationship Specialty Start Date End Date Dawn Andujar MD PCP - General 08/08/18 documented as of this encounter
--- OUTSIDE RECORDS SUMMARY | 2024-05-02 13:19 | XMS_ITS | Clinical Summary ---
Author Organization [facility] Address [address] [facility] [place] [address] Care Team Providers Care Safety Sitter Name Role Phone Dawn Andujar MD Primary Care Provider [phone]- [phone] Source Comments [facility],non-owned Affiliates and Associated Physician Practices is amultiple site organization consisting of ambulatory clinics and hospital sitesin [place], [place], [place] and [place]. This disclosure is being madepursuant to the Care Everywhere program and may not contain all information available regarding this patient. Last updated 17.[employer] [facility] Allergies No known active allergies Medications * Be aware that medications may not be up to date on this document. Alwaysverify current medications with the patient. Medication Sig Dispensed Refills Start Date End Date Status indapamide (LOZOL) 2.5 MG tablet Take 2.5 mg by mouth Every Morning. 05/13/2017 Active aspirin (ASPIRIN) 81 MG chew tablet Take by mouth. 05/13/2017 Active [place]-3 Fatty Acids (FISH OIL) 1200 MG Take [...] female) 2017 Malignant neoplasm of endometrium 05/13/2017 Family History Medical History Relation Name Comments Brain Tumor Father Cancer - Lung Father Cancer - Breast Maternal Grandmother Cancer - Lung Mother Relation Name Status Comments Father Maternal Grandmother Mother Social History Tobacco Use Types Packs/Day Years [...] 07/25/2018 9:24 AM CDT Plan of Treatment Health Maintenance Due Date Last Done Comments BONE DENSITY TESTING 1950 COLOGUARD (AGES 45-75) - COLON CA SCREENING [address] COLONOGRAPHY - COLON CA SCREENING 1950 FIT - COLON CA SCREENING 1950 FLEX SIG - COLON CA SCREENING 1950 LIPID TESTING 1950 MEDICARE AWV 12 MONTHS 1950 HEPATITIS C SCREENING 09/13/1969 DTAP/TDAP/TD VACCINES (1 - Tdap) 09/17/1970 PNEUMOCOCCAL VACCINE 50+ (1 of 1 - PCV) 09/17/2001 ZOSTER VACCINE (1 of 2) 09/17/2001 SCREENING FOR DIABETES 06/25/2017 MAMMOGRAM 04/15/2019 04/15/2017 (Done Outside Per Patient) COLONOSCOPY - COLON CA SCREENING 07/15/2022 07/15/2012 (Done Outside Per Patient) Colorectal Cancer Screening 07/15/2022 COVID-19 VACCINE (1 - 2023-2 5 season) 2023 INFLUENZA VACCINE (#1) 2023 DEPRESSION SCREENING 02/23/2024 Respiratory Syncytial Virus (RSV) Vaccine Pt: or over 60 yrs (1 - 1-dose 75+ series) 09/17/2026 HEPATITIS B VACCINE Aged Out No longe r eligible based on patient's age to complete this topic HIB VACCINE Aged Out No longer eligi ble based on patient's age to complete this topic HPV VACCINE Aged Out No longer eligi ble based on patient's age to complete this topic MENINGOCOCCAL (Group B) VACCINE Aged Out No longer eligible based on patient's age to complete this topic MENINGOCOCCAL VACCINE Aged Out No eleni wilton eligible based on patient's age to complete this topic Care Teams Safety Sitter Relationship Specialty Start Date End Date Dawn Andujar MD PCP - General 08/08/18
--- OUTSIDE RECORDS SUMMARY | 2024-05-02 13:19 | XMS_ITS | Encounter Summary ---
Author Organization [facility] Healthcare Address [address] [place] [address] Care Team Providers Care Packaging Specialist Name Role Phone Unavailable Primary Care Provider Unavailabl e Reason for Visit * Diagnostic Imaging (Routine) - Pending Review Specialty Diagnoses / Procedures Referred By Contyvrose t Referred To Contact Procedures Breast Imaging Screening Outside Reference Elena Lipscomb NP [address] [facility] [phone] [place] [address] Phone: tel: fax: Referral ID Status Reason Start Date Expiration Date V isits Requested Visits Authorized [id number] Pending Review 06/17/2023 07/16/2024 1 1 Encounter Details Date Type Department Care Team (Late st Contact Info) Description 09/23/2018 Hospital Encounter [facility] [address] [place] [id number] Social History Tobacco Use Types Packs/Day Years Used Date Smoking Tobacco: Never Assessed Comments Unknown Sex and Gender Information Value Date Recorded Sex Assigned at Not on file 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 There will be no report generated by a [facility] Radiologist. Narrative [facility] - 06/17/2023 2:53 PM CDT EXAMINATION: Images For Reference Purposes Only us Elena Lipscomb NP IMG MAMMO PROCEDURES Final Result [facility] documented in this encounter Visit Diagnoses Not on filedocumented in this encounter
--- OUTSIDE RECORDS SUMMARY | 2024-05-02 13:19 | XMS_ITS | Patient Health Summary ---
Author Organization [facility] Address [address] [place] [address] Care Team Providers Care Lan Engineer Name Role Phone Dawn Andujar MD Primary Care Provider +1- [phone] Note from [facility],non-owned Affiliates and Associated Physician Practices is amultiple site organization consisting of ambulatory clinics and hospital sitesin [place], [place], [place]. This disclosure is being madepursuant to the Care Everywhere program and may not contain all information available regarding this patient. Last updated 17.[facility] Allergies No known active allergies Medications * Be aware that medications may not be up to date on this document. Alwaysverify current medications with the patient. * indapamide (LOZOL) 2.5 MG tablet(Started 05/13/2017) Take 2.5 mg by mouth Every Morning. * aspirin (ASPIRIN) 81 MG chew tablet(Started 05/13/2017) Take by mouth. * [place]-3 Fatty Acids (FISH OIL) 1200 MG(Started 05/13/2017) Take by mouth. * Garlic 1000 MG(Started 05/13/2017) Take by mouth. * Vitamins/Minerals TABS(Started 05/13/2017) Take by mouth. * Probiotic Product (ACIDOPHILUS/GOAT MILK) CAPS(Started 05/13/2017) Take by mouth. * levothyroxine (SYNTHROID) 100 MCG tablet(Started 05/10/2017) 3 refills left * Vitamin D3, cholecalciferol, 2000 UNITS tablet Take 2,000 Units by mouth once daily Active Problems Problem Noted Date Diagnosed Date [...] Mass Index 26.57 07/25/2018 9:24 AM CDT Procedures * DERMATOPATHOLOGY(Performed 08/09/2023) * DERMATOPATHOLOGY(Performed 09/21/2022) * DERMATOPATHOLOGY(Performed 09/14/2022) * DERMATOPATHOLOGY(Performed 09/07/2022) * DERMATOPATHOLOGY(Performed 06/16/2022) * LAB HISTORICAL RESULTS-ONBASE(Performed 05/27/2017) * PATHOLOGY/GENETICS HISTORICAL-ONBASE(Performed 05/20/2017) Results * DERMATOPATHOLOGY (08/09/2023 10:34 AM CDT) Only the most recent of5 resultswithin the time period is included. Case Report Dermatopathology Report Case: [id number] Authorizing Provider: Lindsey Granda DO Collected: 08/09/2023 10:34 AM Ordering Location: [facility] - Received: 08/10/2023 06:53 AM DermPath Lab Pathologist: Linnea Mann MD Specimens: A) - Skin, right chest B) - Skin, left cheek C) - Skin, left anterior lower extremity 12:26 PM CDT DERMATOPATHOLOGY LABORATORY Final Diagnosis Specimen A. SKIN, right chest: BASAL CELL CARCINOMA, NODULAR TYPE (C44.519) Specimen B. SKIN, left cheek: SQUAMOUS PROLIFERATION (D48.5) (see microscopic description and comment) Specimen C. SKIN, left anterior lower extremity: BASAL CELL CARCINOMA, NODULAR TYPE (C44.719) 4 12:26 PM [facility] DERMATOPATHOLOGY LABORATORY Clinical History A-C: R/O NMSC 4 12:26 PM [facility] DERMATOPATHOLOGY LABORATORY Gross Description Specimen A: Received [...] shave biopsy measuring 7x5x1 mm. Jar 0. 4 12:26 PM [facility] DERMATOPATHOLOGY LABORATORY Microscopic Description Specimen A. SKIN, [...] nuclear to cytoplasmic ratio and peripheral palisading. 4 12:26 PM T DERMATOPATHOLOGY LABORATORY Disclaimer An external and internal positive and negative controls are appropriate for the histochemical, immunohistochemical and immunofluorescence stain(s) in this case (if any), except where stated explicitly. The performance characteristics of the stain(s) cited in this report were developed and its performance characteristic determined by the Dermatopathology Laboratory at [facility], directed by Dr. Deepthi Espinoza. These tests need not be, and therefore are not, approved by the [place] Food and Drug Administration. The tests are used for clinical purposes. Billing Codes Specimen Charges Stain Charges 22079 80760 94450 1 1 1 4 12:26 PM CDT [...] LAB - PATHOLOGY/C YTOLOGY ORDERABLES DERMATOPATHOLOGY LABORATORY [facility] Department of Dermatology [address], [address] [phone] * LAB HISTORICAL RESULTS-ONBASE (05/27/2017) 05/27/2017 Historical Provider LAB - CHEMISTRY Mariola ESPOSITO Performing Organization Address City/[facility]/ZIP Co de Phone Number [place] [phone] [address] * PATHOLOGY/GENETICS HISTORICAL-ONBASE (05/20/2017) 05/20/2017 Historical Provider LAB - CHEMISTRY Mariola ESPOSITO [facility] [address] Care Teams Lan Engineer Relationship Specialty Start Date End Date Dawn Andujar MD PCP - General 08/08/18
--- OUTSIDE RECORDS SUMMARY | 2024-05-02 13:19 | XMS_ITS | Encounter Summary ---
Author Organization [facility] Health Address [address] [facility] [place] [address] Care Team Providers Care Pe Teacher Name Role Phone Dawn Andujar MD Primary Care Provider +1- [phone] Encounter Details Date Type Department Care Team (Late st Contact Info) Description 09/21/2022 Lab Requisition [facility] - DermPath Lab [address] [facility], [place] [address] Lindsey Granda DO [address] [facility] 3 [place] [address] Social History Tobacco Use Types Packs/Day Years [...] Priority Date/Time Associated Diagnosis Comments DERMATOPATHOLOGY Routine 09/21/2022 11:3 9 AM CDT documented in this encounter Results * DERMATOPATHOLOGY (09/21/2022 11:39 AM CDT) Case Report Dermatopathology Report Case: [id number] Authorizing Provider: Lindsey Granda DO Collected: 09/21/2022 11:39 AM Ordering Location: [facility] DermPath Lab Received: 09/21/2022 04:23 PM Pathologist: Linnea Mann MD Specimen: Skin, right forearm 3 4:51 PM CDT DERMATOPATHOLOGY LABORATORY Amended Report Correction of site from right arm to right forearm 3 4:51 PM CDT DERMATOPATHOLOGY LABORATORY Final Diagnosis Specimen A. SKIN, right forearm: DERMAL SCAR RESIDUAL SQUAMOUS CELL CARCINOMA IN SITU NOT IDENTIFIED (L90.5) 3 4:51 PM CDT DERMATOPATHOLOGY LABORATORY Amendment electronically signed by Linnea Mann MD on 09/25/2022 at 4:51 PM Clinical History BX PROVEN SCCIS 3 4:51 PM CDT DERMATOPATHOLOGY LABORATORY Gross Description Specimen A: Received is one formalin filled container labeled with the patient's name and designated right forearm. The specimen consists of a non-oriented ellipse of skin measuring 28x91b6 mm. The epidermal surface is unremarkable. The margin is inked green. The 12 o'clock and 6 o'clock tips are submitted in cassette 1. The remainder of the ellipse is serially sectioned and submitted in cassette 2-3. Jar 0. 3 4:51 PM CDT DERMATOPATHOLOGY LABORATORY Microscopic Description Specimen A. SKIN, right forearm: There are fibroblasts and collagen bundles oriented parallel to the skin surface. There are elongated blood vessels, some of which are oriented perpendicular to the skin surface. No residual squamous cell carcinoma in situ is identified. 3 4:51 PM CDT DERMATOPATHOLOGY LABORATORY Disclaimer An external and internal positive and negative controls are appropriate for the histochemical, immunohistochemical and immunofluorescence stain(s) in this case (if any), except where stated explicitly. The performance characteristics of the stain(s) cited in this report were developed and its performance characteristic determined by the Dermatopathology Laboratory at [facility], directed by Dr. Deepthi Espinoza. These tests need not be, and therefore are not, approved by the [place] Food and Drug Administration. The tests are used for clinical purposes. Billing Codes Specimen Charges Stain Charges 07177 1 3 4:51 PM CDT DERMATOPATHOLOGY LABORATORY Embedded Images 3 4:51 PM CDT DERMATOPATHOLOGY LABORATORY Pathology/Cytolo gy TISSUE SPECIMEN FROM SKIN / Unknown 09/21/2022 11:39 AM CDT 09/21/2022 4:23 PM CDT Lindsey Granda DO LAB - PATHOLOGY/C YTOLOGY ORDERABLES DERMATOPATHOLOGY LABORATORY [facility] - Department of Dermatology [facility] [address] [place] [address], [address] [phone] documented in this encounter Visit Diagnoses Not on filedocumented in this encounter Care Teams Pe Teacher Relationship Specialty Start Date End Date Dawn Andujar MD PCP - General 08/08/18 documented as of this encounter
--- OUTSIDE RECORDS SUMMARY | 2024-05-02 13:19 | XMS_ITS | Encounter Summary ---
Author Organization [facility] Healthcare Address [address] [place] [address] Care Team Providers Care Orthopedics Teacher Name Role Phone Unavailable Primary Care Provider Unavailabl e Reason for Visit * Diagnostic Imaging (Routine) - Pending Review Specialty Diagnoses / Procedures Referred By Contyvrose t Referred To Contact Procedures Breast Imaging Screening Outside Reference Elena Lipscomb NP [address] [facility] [id number] [place] [address] Phone: tel: fax: Referral ID Status Reason Start Date Expiration Date V isits Requested Visits Authorized [id number] Pending Review 06/17/2023 07/16/2024 1 1 Encounter Details Date Type Department Care Team (Late st Contact Info) Description 11/22/2019 Hospital Encounter [facility] Radiology [facility] [address] [place] [address] Social History Tobacco Use Types Packs/Day Years Used Date Smoking Tobacco: Never Assessed Comments Unknown Sex and Gender Information Value Date Recorded Sex Assigned at Not on file Legal Sex 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 There will be no report generated by a [facility] Radiologist. Narrative [facility] - 06/17/2023 2:53 PM CDT EXAMINATION: Images For Reference Purposes Only us Elena Lipscomb NP IMG MAMMO PROCEDURES Final Result [facility] documented in this encounter Visit Diagnoses Not on filedocumented in this encounter
== END 2024-05-02 11:30 | disposition home or self-care (01) ==
LOC: ANHIMG 11:37
PROVIDERS: PCP Family Medicine; Visit Provider Physician Assistant Surgical
DX: M25.511 Pain in right shoulder (principal)
CPT/HCPCS: 73030

== ENCOUNTER 2024-08-29 10:28 | Outpatient (CLI) | payer MEDICARE, SELFPAY ==
--- NOTE | ~2024-08-29 | XR_ITS ---
EXAM/ PROCEDURE: XR hand LT min 3V - 08/29/2024 10:46 CDT HISTORY: 73 years old Female with M18.12 - Unilateral primary osteoarthritis of first carpo... COMPARISON: None available TECHNIQUE: Three view(s) FINDINGS/ IMPRESSION: There are no fractures or dislocations.Joint space narrowing, subchondral sclerosis, subchondral cyst formation and osteophyte formation, compatible with moderate osteoarthritis, most pronounced at firs t carpometacarpal joint. Reviewed, dictated and finalized at location A.
--- OUTSIDE RECORDS SUMMARY | 2024-08-29 10:37 | XMS_ITS | Encounter Summary ---
Author Organization [facility] Health Address [address] [facility] [place] [address] Care Team Providers Care Manager Room Name Role Phone Dawn Andujar MD Primary Care Provider +1- [phone] Encounter Details Date Type Department Care Team (Late st Contact Info) Description 09/21/2022 Lab Requisition [facility] - DermPath Lab [address] [facility], [place] [address] Lindsey Granda DO [address] [facility] 3 [place] [address] Social History Tobacco Use Types Packs/Day Years Used Date Smoking Tobacco: Passive Smo ke Exposure - Never Smoker Smokeless Tobacco: Never Alcohol Use Standard Drinks/Week Comments Yes 0 (1 standard drink = 0.6 oz pur e alcohol) Comments No Sex and Gender Information Value Date Recorded Sex Assigned at Not on file Legal Sex Female 5:59 PM CDT Gender Identity Not on file Sexual Orientation Not on file documented as of this encounter Plan of Treatment Not on file documented as of this encounter Procedures Procedure Name Priority Date/Time Associated Diagnosis Comments DERMATOPATHOLOGY Routine 09/21/2022 11:3 9 AM CDT documented in this encounter Results * DERMATOPATHOLOGY (09/21/2022 11:39 AM CDT) Case Report Dermatopathology Report Case: [id number] Authorizing Provider: Lindsey Granda DO Collected: 09/21/2022 11:39 AM Ordering Location: [facility] DermPath Lab Received: 09/21/2022 04:23 PM Pathologist: Linnea Mann MD Specimen: Skin, right forearm 4:51 PM CDT DERMATOPATHOLOGY LABORATORY Amended Report Correction of site from right arm to right forearm 3 4:51 PM CDT DERMATOPATHOLOGY LABORATORY Final Diagnosis Specimen A. SKIN, right forearm: DERMAL SCAR RESIDUAL SQUAMOUS CELL CARCINOMA IN SITU NOT IDENTIFIED (L90.5) 3 4:51 PM CDT DERMATOPATHOLOGY LABORATORY Amendment electronically signed by Linnea Mann MD on 09/25/2022 at 1651 CDT at 1412 CDT Clinical History BX PROVEN SCCIS 3 4:51 PM CDT DERMATOPATHOLOGY LABORATORY Gross Description Specimen A: Received is one formalin filled container labeled with the patient's name and designated right forearm. The specimen consists of a non-oriented ellipse of skin measuring 23h40n0 mm. The epidermal surface is unremarkable. The [...] squamous cell carcinoma in situ is identified. 4:51 PM CDT DERMATOPATHOLOGY LABORATORY Disclaimer An external and internal positive and negative controls are appropriate for the histochemical, immunohistochemical and immunofluorescence stain(s) in this case (if any), except where stated explicitly. The performance characteristics of the stain(s) cited in this report were developed and its performance characteristic determined by the Dermatopathology Laboratory at [facility], directed by Dr. Deepthi Espinoza. These tests need not be, and therefore are not, approved by the [place] Food and Drug Administration. The tests are used for clinical purposes. Billing Codes Specimen Charges Stain Charges 63999 1 3 4:51 PM CDT DERMATOPATHOLOGY LABORATORY Embedded Images 3 4:51 PM CDT DERMATOPATHOLOGY LABORATORY Pathology/Cytolo gy TISSUE SPECIMEN FROM SKIN / Unknown 09/21/2022 11:39 AM CDT 09/21/2022 4:23 PM CDT us Lindsey Granda DO LAB - PATHOLOGY/CYTOLOGY ORDERABLES Edited Result - Final DERMATOPATHOLOGY LABORATORY [facility] - Department of Dermatology [facility] [address] [place] [address], [address] [phone] documented in this encounter Visit Diagnoses Not on filedocumented in this encounter Care Teams Manager Room Relationship Specialty Start Date End Date Dawn Andujar MD PCP - General 08/08/18 documented as of this encounter
--- OUTSIDE RECORDS SUMMARY | 2024-08-29 10:37 | XMS_ITS | Encounter Summary ---
Author Organization [facility] Health Address [address] [facility] [place] [address] Care Team Providers Care Shipping Support Name Role Phone Dawn Andujar MD Primary Care Provider [phone] Encounter Details Date Type Department Care Team (Late st Contact Info) Description 09/07/2022 Lab Requisition [facility] - DermPath Lab [address] [facility] [place] [address] Lindsey Granda DO [address] [facility] 3 [place] [address] Social History Tobacco Use Types Packs/Day Years [...] AM CDT) Case Report Dermatopathology Report Case: [id number] Authorizing Provider: Lindsey Granda DO Collected: 09/07/2022 11:15 AM Ordering Location: [facility] DermPath Lab Received: 09/07/2022 04:34 PM Pathologist: Linnea Mann MD Specimen: Skin, left post leg 3 6:57 PM CDT DERMATOPATHOLOGY LABORATORY Final Diagnosis Specimen A. SKIN, left post leg: DERMAL SCAR RESIDUAL BASAL CELL CARCINOMA NOT IDENTIFIED (L90.5) 3 6:57 PM CDT DERMATOPATHOLOGY LABORATORY at 1857 CDT Clinical History BCC 3 6:57 PM CDT DERMATOPATHOLOGY LABORATORY Gross Description Specimen A: Received is one formalin filled container labeled with the patient's name and designated left post leg. The specimen consists of a non-oriented ellipse of skin measuring 06t57f5 mm. The epidermal surface is unremarkable. The [...] characteristic determined by the Dermatopathology Laboratory at [facility], directed by Dr. Deepthi Espinoza. These tests need not be, and therefore are not, approved by the [place] Food and Drug Administration. The tests are used for clinical purposes. Billing Codes Specimen Charges Stain Charges 48031 1 3 6:57 PM CDT DERMATOPATHOLOGY LABORATORY Embedded Images 3 6:57 PM CDT DERMATOPATHOLOGY LABORATORY Pathology/Cytolo gy TISSUE SPECIMEN FROM SKIN / Unknown 09/07/2022 11:15 AM CDT 09/07/2022 4:34 PM CDT us Lindsey Sheila Granda DO LAB - PATHOLOGY/CYTOLOGY ORDERABLES Final Result DERMATOPATHOLOGY LABORATORY [facility] - Department of Dermatology [facility] Medicine [address] [place] [address], [address] [phone] documented in this encounter Visit Diagnoses Not on filedocumented in this encounter Care Teams Shipping Support Relationship Specialty Start Date End Date Dawn Andujar MD PCP - General 08/08/18 documented as of this encounter
--- OUTSIDE RECORDS SUMMARY | 2024-08-29 10:37 | XMS_ITS | Encounter Summary ---
Author Organization [facility] Health Address [address] [place] [address] Care Team Providers Care Cheese Production Supervisor Name Role Phone Dawn Andujar MD Primary Care Provider [phone]- [phone] Encounter Details Date Type Department Care Team (Late st Contact Info) Description 09/14/[address] [facility] - DermPath Lab [address] [facility] [place] [address] Lindsey Granda DO [address] [facility] 3 [place] [address] Social History Tobacco Use Types Packs/Day Years [...] PM CDT) Case Report Dermatopathology Report Case: [id number] Authorizing Provider: Lindsey Granda DO Collected: 09/14/2022 03:05 PM Ordering Location: [facility] DermPath Lab Received: 09/15/2022 12:38 PM Pathologist: Ashanti Cheng MD Specimen: Skin, post left arm 11:31 AM T DERMATOPATHOLOGY LABORATORY Final Diagnosis Specimen A. SKIN, post left arm: DERMAL SCAR RESIDUAL SQUAMOUS CELL CARCINOMA NOT IDENTIFIED (L90.5) 11:31 AM T DERMATOPATHOLOGY LABORATORY at 1131 CDT Clinical History R/O: SCC IN SITU 11:31 AM CDT DERMATOPATHOLOGY LABORATORY Gross Description Specimen A: Received is one formalin filled container labeled with the patient's name and designated post left arm. The specimen consists of a non-oriented ellipse of skin measuring [id number] mm. The epidermal surface is unremarkable. The margin is inked green. The 12 o'clock and 6 o'clock tips are submitted in cassette 1. The remainder of the ellipse is serially sectioned and submitted in cassette 2-3. Jar 0. 11:31 AM T DERMATOPATHOLOGY LABORATORY Microscopic Description Specimen A. SKIN, post left arm: There are fibroblasts and collagen bundles oriented parallel to the skin surface. There are elongated blood vessels, some of which are oriented perpendicular to the skin surface. No residual squamous cell carcinoma is identified. 11:31 AM T DERMATOPATHOLOGY LABORATORY Disclaimer An external and internal positive and negative controls are appropriate for the histochemical, immunohistochemical and immunofluorescence stain(s) in this case (if any), except where stated explicitly. The performance characteristics of the stain(s) cited in this report were developed and its performance characteristic determined by the Dermatopathology Laboratory at [facility], directed by Dr. Deepthi Espinoza. These tests need not be, and therefore are not, approved by the [place] Food and Drug Administration. The tests are used for clinical purposes. Billing Codes Specimen Charges Stain Charges 85418 1 11:31 AM CDT DERMATOPATHOLOGY LABORATORY Embedded Images 11:31 AM CDT DERMATOPATHOLOGY LABORATORY Pathology/Cytolo gy TISSUE SPECIMEN FROM SKIN / Unknown 09/14/2022 3:05 PM CDT 09/15/2022 12:38 PM CDT us Lindsey Granda DO LAB - PATHOLOGY/CYTOLOGY ORDERABLES Final Result DERMATOPATHOLOGY LABORATORY [facility] - Department of Dermatology [facility] Medicine [address] [place] [address], [address] [phone] documented in this encounter Visit Diagnoses Not on filedocumented in this encounter Care Teams Cheese Production Supervisor Relationship Specialty Start Date End Date Dawn Andujar MD PCP - General 08/08/18 documented as of this encounter
--- OUTSIDE RECORDS SUMMARY | 2024-08-29 10:37 | XMS_ITS | Clinical Summary ---
Author Organization [facility] Address [address] [place] [address] Phone Care Team Providers Care Sales Operations Coordinator Name Role Phone Provider, None Primary Care [...] 7:49 PM CDT Height 157.5 cm (5' 2) 12/25/2020 7:49 PM CDT Body Mass Index 25.61 12/25/2020 7:49 PM CDT Plan of Treatment Health Maintenance Due Date Last Done Comments Hepatitis C Virus (HCV) Screening 1950 Cologuard 09/17/1996 Immunochemical Fecal Occult Blood 09/17/1996 Zoster Immunization (1 of 2) 09/17/2001 Pneumococcal Immunization (50+ years) (2 of 2 - PCV) 10/20/2017 10/20/2016 Colonoscopy 07/15/2022 07/15/2012 Colorectal Cancer Screening 07/15/2022 SARS-COV-2 Immunization ( season) 2023 03/05/2021, 05/28/2020, 05/05/2020 Influenza Immunization (#1) 10/23/202411/23, 12/18/2019, 12/22/2018, Additional history exists Respiratory Syncytial Virus (RSV) Immunization (Adult) (1 - 1-dose 75+ series) 09/17/2026 TdaP Immunization Completed 06/28/2006 DTaP/Tdap/Td Immunization Discontinued 10/20/2016, 08/2006 Hepatitis B Immunization Aged Out No longer eligible based on patient's age to complete this topic Human Papillomavirus (HPV) Immunization Aged Out No longer eligible based [...] Most Recently Relevant to Health Maintenance [place] [address] [place] [address] [employer] Care Teams Sales Operations Coordinator Relationship Specialty Start Date End Date Provider, None [place] PCP - General 12/25/20
--- OUTSIDE RECORDS SUMMARY | 2024-08-29 10:37 | XMS_ITS | Clinical Summary ---
Author Organization [facility] Address [facility] [place] [address] Care Team Providers Care Control Inspector Name Role Phone Bambi Newberry MD Primary Care Provider [phone] Allergies No known active allergies Medications levothyroxine [...] (81 mg total) by mouth daily. Active [place]-3 Fatty Acids (FISH OIL) 500 MG capsule [...] 9:59 AM CDT Height 157.5 cm (5' 2) 10/26/2023 9:59 AM CDT Body Mass Index 25.61 10/26/2023 9:59 AM CDT Plan of Treatment Health Maintenance Due Date Last Done Comments Hepatitis C 09/17/1969 Mammogram Screening 1991 Zoster Vaccines (1 of 2) 09/17/2001 Annual Medicare Wellness Visit 09/17/2016 Dexa Scan (General) 09/17/2016 Pneumococcal Vaccine: 50+ Years (2 of 2 - PCV) 11/22/2017 11/22/2016, 10/20/2016 COVID-19 Vaccine ( season) 2023 11/27/2022, 11/12/2021, 03/05/2021, Additional history exists PHQ-2 (Physician [place]) 02/23/2024 RSV Immunization or 60+ Years (1 - 1-dose 75+ series) 09/17/2026 DTaP, Tdap and Td Vaccines (3 - Td or Tdap) 10/20/2026 10/20/2016, 06/28/2006 Colorectal Cancer Screening Colonoscopy (10 Years) 11/03/2033 11/04/2023, 11/04/2023 Meningococcal B Vaccine Aged Out No l onger eligible based on patient's age to complete this topic Meningococcal Vaccine Aged Out No eleni wilton eligible based on patient's age to complete this topic RSV Immunizations Under 20 Months Aged Out No longer eligible based on patient's age to complete this topic Procedures Procedure Name Priority Date/Time Associated Diagnosis Comments COLONOSCOPY Routine 11/04/2023 9:35 AM CDT from Last 3 Months or Most Recently Relevant to Health Maintenance Insurance [facility]ICARE [facility] Care Teams Control Inspector Relationship Specialty Start Date End Date Bambi Newberry MD [address] [place] [address] PCP - General FAMILY PRACTICE 08/11/23
--- OUTSIDE RECORDS SUMMARY | 2024-08-29 10:37 | XMS_ITS | Encounter Summary ---
Author Organization [facility] Health Address [address] [place] [address] Care Team Providers Care Corporate Scheduler Name Role Phone Dawn Andujar MD Primary Care Provider [phone] Encounter Details Date Type Department Care Team (Late st Contact Info) Description 08/09/2023 Lab Requisition [facility] - DermPath Lab [address] [facility] [place] [address] Lindsey Granda DO [address] [facility] 3 [place] [address] Social History Tobacco Use Types Packs/Day Years [...] AM CDT) Case Report Dermatopathology Report Case: [id number] Authorizing Provider: Lindsey Granda DO Collected: 08/09/2023 10:34 AM Ordering Location: [facility] - Received: 08/10/2023 06:53 AM DermPath Lab Pathologist: Linnea Mann MD Specimens: A) - Skin, right chest B) - Skin, left cheek C) - Skin, left anterior lower extremity 12:26 PM [facility] DERMATOPATHOLOGY LABORATORY Final Diagnosis Specimen A. SKIN, right chest: BASAL CELL CARCINOMA, NODULAR TYPE (C44.519) Specimen B. SKIN, left cheek: SQUAMOUS PROLIFERATION (D48.5) (see microscopic description and comment) Specimen C. SKIN, left anterior lower extremity: BASAL CELL CARCINOMA, NODULAR TYPE (C44.719) 12:26 PM [facility] DERMATOPATHOLOGY LABORATORY at 1226 CDT Clinical History A-C: R/O NMSC 12:26 PM [facility] DERMATOPATHOLOGY LABORATORY Gross Description Specimen A: [...] measuring 7x5x1 mm. Jar 0. 12:26 PM [facility] DERMATOPATHOLOGY LABORATORY Microscopic Description Specimen A. [...] cytoplasmic ratio and peripheral palisading. 12:26 PM [facility] DERMATOPATHOLOGY LABORATORY Disclaimer An external and internal positive and negative controls are appropriate for the histochemical, immunohistochemical and immunofluorescence stain(s) in this case (if any), except where stated explicitly. The performance characteristics of the stain(s) cited in this report were developed and its performance characteristic determined by the Dermatopathology Laboratory at [facility], directed by Dr. Deepthi Espinoza. These tests need not be, and therefore are not, approved by the [place] Food and Drug Administration. The tests are used for clinical purposes. Billing Codes Specimen Charges Stain Charges 03879 27365 45795 1 1 1 4 12:26 PM CDT [...] AM CDT Lindsey Granda DO LAB - PATHOLOGY/CYTOLOGY ORDERABLES Final Result DERMATOPATHOLOGY LABORATORY [facility] Department of Dermatology [facility] Medicine [address] [place] [address], [address]rd Floor [address] [phone] documented in this encounter Visit Diagnoses Not on filedocumented in this encounter Care Teams Corporate Scheduler Relationship Specialty Start Date End Date Dawn Andujar MD PCP - General 08/08/18 documented as of this encounter
--- OUTSIDE RECORDS SUMMARY | 2024-08-29 10:37 | XMS_ITS | Clinical Summary ---
Author Organization [facility] [address] Address [address] [place] [address] Care Team Providers Care Autocad Detailer Name Role Phone Bambi Newberry MD Primary Care Provider [phone] Carlita Ordaz MD Unavailable [phone] Allergies No known active allergies Medications aspirin 81 mg chewable tablet CHEW AND SWALLOW 1 TABLET BY MOUTH DAILY AT 8 AM Active cholecalciferol (VITAMIN D-3) 2000 unit tablet Take 1 tablet (2,000 Units total) by mouth daily Active labetaloL (NORMODYNE,ANYAK DATE) 100 mg tablet 4 Active levothyroxine [...] Take 1 mL by mouth daily Active omega-3 fatty acids-fish oil 300-500 mg capsule Take 1,000 mg by mouth daily Active garlic 1,000 mg capsule Take by mouth 8 Active celecoxib (CeleBREX) 200 mg capsule Take 1 capsule (200 mg total) by mouth daily 5 Active Active Problems No known active problems Encounters Date Type Department Care Team Description 08/23/2024 10:54 AM CDT - 08/23/2024 11:59 PM CDT Hospital Encounter [facility] - Breast Imaging [address] [place] [address] Abnormal finding on breast imaging Discharge Disposition: Discharge to home or self care 08/23/2024 10:54 AM CDT - 08/23/2024 11:59 PM CDT Hospital Encounter [facility] - Breast Imaging [address] [place] [address] 8 [place] [address] Abnormal finding on breast imaging Discharge Disposition: Discharge to home or self care 08/23/2024 10:45 AM CDT Office Visit [facility] Surgery [address] [place] [address] [address] [place] [address] Alma Bronson, ELLIE Abnormal mammogram (Primary Dx); Heterogeneously dense tissue of both breasts on mammography from Last 3 Months Immunizations Immunization Administration Dates Next Due Influenza, Quadrivalent, Hig h Dose, Preservative Free, Intrr 12/12/2020,12/18/2019 Influenza, Trivalent, Adjuvanted, Intramuscular 12/22/2018 Influenza, Trivalent, High D ose, Split, Preservative Free, Intramuscular 11/23/2017 Influenza, Trivalent, Preservative Free, Intramu scular 12/08/2016 Influenza, Unspecified 11/22/2016 Pneumococcal Polysaccharide PPV23 11/22/2016, TD Preservative Free 10/20/2016 Tdap 06/28/2006 Surgical History Surgery Date Site/Laterality Comments TONSILLECTOMY 02/22/1957 - 02/21/1958 MYOMECTOMY 02/22/1994 - 02/21/1995 fibroid tumor removed from uterus LAPAROSCOPIC CHOLECYSTECTOMY 02/22/2003 - 02/22/2004 ORAL SURGERY 02/22/2005 - 02/21/2006 lesion removed - inner mouth - benign CARPAL TUNNEL RELEASE 10/24/2011 - 11/22/2011 Left DILATION AND CURETTAGE OF UTERUS 04/22/2017 - 05/22/2017 HYSTEROSCOPY 04/22/2017 - 05/22/2017 HYSTERECTOMY 05/23/2017 - 06/21/2017 CARPAL TUNNEL RELEASE 10/23/2022 - 11/21/2022 Right SKIN SURGERY 09/23/2023 - 10/23/2023 ED&C Medical History Medical History Date Comments Stroke (HCC) Depression Hypertension Thyroid disease Family History Medical History Relation Name Comments Brain cancer Father Lung cancer Father Mastectomy Maternal Grandmother Fibroids Mother Lung cancer Mother Relation Name Status Comments Father Maternal Grandmother Alive Mother Social History Tobacco Use Types Packs/Day Years Used Date Smoking Tobacco: Never Smokeless Tobacco: Never Tobacco Cessation:Counseling Given: Not Answered Comments Unknown Sex and Gender Information Value Date Recorded Sex Assigned at Not on file 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 Gender Identity Not on file Sexual Orientation Not on file Obstetrics History Para Term AB IAB SAB Ectopic Multiple Livin g Live Births 1 1 Date Outcome GA Total Labor Labor/2nd/3rd Weight Sex Type Anes PTL Karina A1 A5 Name Clin Term Last Filed Vital Signs Vital Sign Reading Time Taken Comments Blood Pressure 148/72 08/23/2024 12:55 PM CDT Pulse 72 08/23/2024 12:55 PM CDT Temperature 36.5 C (97.7 F) 08/23/2024 12:55 PM CDT Respiratory Rate 20 08/23/2024 12:55 PM CDT Oxygen Saturation 98% 08/23/2024 12:55 PM CDT Inhaled Oxygen Concentration - - Weight 67.3 kg (148 lb 6.4 oz) 08/23/2024 12:55 PM CDT Height 160 cm (5' 2.99) 08/23/2024 12:55 PM CDT Body Mass Index 26.29 08/23/2024 12:55 PM CDT Plan of Treatment Health Maintenance Due Date Last Done Comments Colon Cancer Screening-Colonoscopy 1950 Depression Screening 1950 Fall Risk Assessment 1950 Hepatitis C Screening 1950 Osteoporosis Screening-Bone Density Scan 1950 Hepatitis B Screening 09/17/1969 Zoster Vaccine (1 of 2) 09/17/2001 Well Visit 65+ 09/17/2016 Pneumococcal vaccine 65+ (2 of 2 - PCV) 11/22/2017 11/22/2016, 10/20/2016 Covid-19 Vaccine (3 - 2023-2 5 season) 2023 05/28/2020, 05/05/2020 Influenza Vaccine (#1) 2024 , 12/18/2019, 12/22/2018, Additional history exists Breast Cancer Screening-Mammogram 08/23/2025 025 DTaP/Tdap/Td Vaccine (3 - Td or Tdap) 10/20/2026 10/20/2016, 06/28/2006 Procedures Procedure Name Priority Date/Time Associated Diagnosis Comments US BREAST BILATERAL LIMITED Schedule Routine, Read Routine (OP Routine) 08/23/2024 11:57 AM CDT Abnormal finding on breast imaging DIAGNOSTIC MAMMOGRAM BILATERAL W YUKI Schedule Routine, Read Routine (OP Routine) 08/23/2024 11:16 AM CDT Abnormal finding on breast imaging from Last 3 Months Results * US Breast Bilateral Limited (08/23/2024 11:57 AM CDT) Anatomical Region Laterality Modality Breast Bilateral Ultrasound 08/23/2024 1:33 PM CDT Impressions 08/23/2024 1:33 PM CDT Bilateral breast lesions are stable from prior exam and are probably benign. OVERALL FINAL ASSESSMENT: BI-RADS Category 3: Probably Benign. RECOMMENDATION: Recommend follow-up diagnostic breast imaging in 12 months with bilateral breast ultrasound. The radiology attending physician has personally reviewed this study, and had reviewed and/or edited this written report and agrees with it. Electronically signed by: Mariam Laguerre M.D. Narrative 08/23/2024 1:33 PM CDT EXAMINATION: BILATERAL DIGITAL DIAGNOSTIC MAMMOGRAM INCLUDING CAD AND BILATERAL DIGITAL BREAST TOMOSYNTHESIS AND BILATERAL BREAST ULTRASOUND HISTORY: 73-year-old female with a history of bilateral upper outer breast focal asymmetries and BI-RADS Category 3 bilateral breast masses. COMPARISON: Comparison is made with multiple prior studies, most recently bilateral breast ultrasound 02/01/2024 and diagnostic mammogram 06/17/2023. TECHNIQUE: Full field digital mammographic views of BOTH breasts were performed, including computer aided detection (CAD) and BILATERAL digital breast tomosynthesis (DBT). BREAST PARENCHYMAL COMPOSITION: The breasts are heterogeneously dense, which may obscure small masses. MAMMOGRAM FINDINGS: There is no mass, calcification or architectural distortion suggestive of malignancy within EITHER breast. ULTRASOUND FINDINGS: Targeted sonographic evaluation of the right breast at 1:00, 8 cm from the nipple demonstrates an unchanged oval complicated cyst versus dilated duct measuring 0.5 x 0.2 x 0.7 cm. Targeted sonographic evaluation of the left breast at 2:00, 4 cm from the nipple demonstrates an unchanged probable complicated cyst measuring 0.3 x 0.2 x 0.3 cm. In the left breast at 2:30, 4 cm from the nipple there is an additional unchanged probable complicated cyst measuring 0.5 x 0.5 x 0.3 cm. In the left breast at 2:00, 6 cm from the nipple there is an probable cluster of microcysts adjacent to a vessel measuring approximately 0.6 x 0.6 x 0.4 cm. This is stable from prior exam.. Elena Lipscomb NP IMG MAMMO PROCEDURES Final Result * Diagnostic Mammogram Bilateral W Yuki (08/23/2024 11:16 AM CDT) Anatomical Region Laterality Modality Breast Bilateral Mammography 08/23/2024 1:33 PM CDT Impressions 08/23/2024 1:33 PM CDT Bilateral breast lesions are stable from prior exam and are probably benign. OVERALL FINAL ASSESSMENT: BI-RADS Category 3: Probably Benign. RECOMMENDATION: Recommend follow-up diagnostic breast imaging in 12 months with bilateral breast ultrasound. The radiology attending physician has personally reviewed this study, and had reviewed and/or edited this written report and agrees with it. Electronically signed by: Mariam Laguerre M.D. Narrative 08/23/2024 1:33 PM CDT EXAMINATION: BILATERAL DIGITAL DIAGNOSTIC MAMMOGRAM INCLUDING CAD AND BILATERAL DIGITAL BREAST TOMOSYNTHESIS AND BILATERAL BREAST ULTRASOUND HISTORY: 73-year-old female with a history of bilateral upper outer breast focal asymmetries and BI-RADS Category 3 bilateral breast masses. COMPARISON: Comparison is made with multiple prior studies, most recently bilateral breast ultrasound 02/01/2024 and diagnostic mammogram 06/17/2023. TECHNIQUE: Full field digital mammographic views of BOTH breasts were performed, including computer aided detection (CAD) and BILATERAL digital breast tomosynthesis (DBT). BREAST PARENCHYMAL COMPOSITION: The breasts are heterogeneously dense, which may obscure small masses. MAMMOGRAM FINDINGS: There is no mass, calcification or architectural distortion suggestive of malignancy within EITHER breast. ULTRASOUND FINDINGS: Targeted sonographic evaluation of the right breast at 1:00, 8 cm from the nipple demonstrates an unchanged oval complicated cyst versus dilated duct measuring 0.5 x 0.2 x 0.7 cm. Targeted sonographic evaluation of the left breast at 2:00, 4 cm from the nipple demonstrates an unchanged probable complicated cyst measuring 0.3 x 0.2 x 0.3 cm. In the left breast at 2:30, 4 cm from the nipple there is an additional unchanged probable complicated cyst measuring 0.5 x 0.5 x 0.3 cm. In the left breast at 2:00, 6 cm from the nipple there is an probable cluster of microcysts adjacent to a vessel measuring approximately 0.6 x 0.6 x 0.4 cm. This is stable from prior exam.. Elena Lipscomb NP IMG MAMMO PROCEDURES Final Result from Last 3 Months Insurance MEDICARE [facility] Address: [address] [address] [facility] Care Teams Autocad Detailer Relationship Specialty Start Date End Date Bambi Newberry MD PCP - General Family Medicine 07/08/22 Carlita Ordaz MD [address] [phone] Referring Physician Gynecology 06/09/23
--- OUTSIDE RECORDS SUMMARY | 2024-08-29 10:37 | XMS_ITS | Encounter Summary ---
Author Organization [facility] Healthcare Address [facility] [place] [address] Care Team Providers Care Welder Plasma Arc Name Role Phone Unavailable Primary Care Provider Unavailabl e Reason for Visit * Diagnostic Imaging (Routine) - Closed Specialty Diagnoses / Procedures Referred By Contac t Referred To Contact Procedures Breast Imaging Screening Outside Reference Elena Lipscomb NP [address] [facility] [place] [id number] [place] [address] Phone: tel: fax: Referral ID Status Reason Start Date Expiration Date Visits Re quested Visits Authorized [id number] Closed 06/17/2023 07/16/2024 1 1 Encounter Details Date Type Department Care Team (Late st Contact Info) Description 11/22/2019 Hospital Encounter [facility] [address] [place] [address] [id number] Social History Tobacco Use Types Packs/Day Years Used Date Smoking Tobacco: Never Smokeless Tobacco: Never Comments Unknown Sex and Gender Information Value Date Recorded Sex Assigned at Not on file 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 There will be no report generated by a [facility] Radiologist. Narrative [facility] - 06/17/2023 2:53 PM CDT EXAMINATION: Images For Reference Purposes Only us Elena Lipscomb NP IMG MAMMO PROCEDURES Final Result [facility] documented in this encounter Visit Diagnoses Not on filedocumented in this encounter
--- OUTSIDE RECORDS SUMMARY | 2024-08-29 10:37 | XMS_ITS | Clinical Summary ---
Author Organization [facility] Address [address] [place] [address] Care Team Providers Care Mushroom Growing Supervisor Name Role Phone Dawn Andujar MD Primary Care Provider [phone] Source Comments [facility],non-owned Affiliates and Associated Physician Practices is amultiple site organization consisting of ambulatory clinics and hospital sitesin [place], [place], [place] and [place]. This disclosure is being madepursuant to the Care Everywhere program and may not contain all information available regarding this patient. Last updated 17[employer] Allergies No known active allergies Medications * Be aware that medications may not be up to date on this document. Alwaysverify current medications with the patient. indapamide (LOZOL) 2.5 MG tablet Take 2.5 mg by mouth Every Morning. 05/13/2017 Active aspirin (ASPIRIN) 81 MG chew tablet Take by mouth. 05/13/2017 Active Lignum-3 Fatty Acids (FISH OIL) 1200 MG Take by mouth. 05/13/2017 Active Garlic 1000 MG Take by mouth. 05/13/2017 Active Vitamins/Mineral s TABS Take by mouth. 05/13/2017 Active Probiotic Product (ACIDOPHILUS/GOA T MILK) CAPS Take by mouth. 05/13/2017 Active [...] 9:24 AM CDT Height 160 cm (5' 3) 07/25/2018 9:24 AM CDT Body Mass Index [...] VACCINE (1 - 2023-2 5 season) 2023 DEPRESSION SCREENING 02/23/2024 INFLUENZA VACCINE (#1) 2024 Respiratory Syncytial Virus (RSV) Vaccine Pt: or [...] complete this topic MENINGOCOCCAL (Group B) VACCINE SHARED DECISION-MAKING Aged Out No longer eligible based on patient's age to complete this topic MENINGOCOCCAL GROUPS A/C/Y/W VACCINE Aged Out No longer eligible based on patient's age to complete this topic Insurance MEDICARE MEDICARE [facility] Care Teams Mushroom Growing Supervisor Relationship Specialty Start Date End Date Dawn Andujar MD PCP - General 08/08/18
--- OUTSIDE RECORDS SUMMARY | 2024-08-29 10:37 | XMS_ITS | Referral Summary ---
Author Organization [facility] [place] [address] Address [address] [place] [id number] Care Team Providers Care Sequencing Machine Operator Name Role Phone Bambi Newberry MD Primary Care Provider [phone] Carlita Ordaz MD Unavailable [phone] Encounters Date Type Department Care Team Description 08/23/2024 10:54 AM CDT - 08/23/2024 11:59 PM CDT Hospital Encounter [facility] - Breast Imaging [address] [place] [id number] Abnormal finding on breast imaging Discharge Disposition: Discharge to home or self care 08/23/2024 10:54 AM CDT - 08/23/2024 11:59 PM CDT Hospital Encounter [facility] - Breast Imaging [address] [place] [id number] Abnormal finding on breast imaging Discharge Disposition: Discharge to home or self care 08/23/2024 10:45 AM CDT Office Visit [facility] [address] [place] [phone] Alma Bronson NP Abnormal mammogram (Primary Dx); Heterogeneously dense tissue of both breasts on mammography from Last 3 Months Allergies No known [...] Active Active Problems No known active problems Immunizations Immunization Administration Dates Next Due Influenza, Quadrivalent, Hig h Dose, Preservative Free, Intrr 12/12/2020,12/18/2019 Influenza, Trivalent, Adjuvanted, Intramuscular 12/22/2018 Influenza, Trivalent, High D ose, Split, Preservative Free, Intramuscular 11/23/2017 Influenza, Trivalent, Preservative Free, Intramu scular 12/08/2016 Influenza, Unspecified 11/22/2016 Pneumococcal Polysaccharide PPV23 11/22/2016, TD Preservative Free 10/20/2016 Tdap 06/28/2006 Social History Tobacco Use Types Packs/Day Years Used Date Smoking Tobacco: Never Smokeless Tobacco: Never Tobacco Cessation:Counseling Given: Not Answered Comments Unknown Sex and Gender Information Value Date Recorded Sex Assigned at Not on file 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 Electronically signed by: Sima Schwarz 08/23/2024 1:33 PM CDT EXAMINATION: BILATERAL DIGITAL [...] Result from Last 3 Months Insurance MEDICARE [facility] MEDICARE [facility] MEDICARE [facility] Care Teams Sequencing Machine Operator Relationship Specialty Start Date End Date Bambi Newberry MD PCP - General Family Medicine 07/08/22 Carlita Ordaz MD [address] [place] [address] Referring Physician Gynecology 06/09/23
--- OUTSIDE RECORDS SUMMARY | 2024-08-29 10:37 | XMS_ITS | Encounter Summary ---
Author Organization [facility] Healthcare Address [facility] [place] [address] Care Team Providers Care Beef Tagger Name Role Phone Unavailable Primary Care Provider Unavailabl e Reason for Visit * Diagnostic Imaging (Routine) - Closed Specialty Diagnoses / Procedures Referred By Contac t Referred To Contact Procedures Breast Imaging Screening Outside Reference Elena Lipscomb NP [address] [facility] [phone] [place] [address] Phone: tel: fax: Referral ID Status Reason Start Date Expiration Date Visits Re quested Visits Authorized [id number] Closed 06/17/2023 07/16/2024 1 1 Encounter Details Date Type Department Care Team (Late st Contact Info) Description 09/23/2018 Hospital Encounter [facility] [address] [place] [address] [id number] Social History Tobacco Use Types Packs/Day Years Used Date Smoking Tobacco: Never Smokeless Tobacco: Never Comments Unknown Sex and Gender Information Value Date Recorded Sex Assigned at Not on file 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 There will be no report generated by a [facility] Radiologist. Narrative [facility] - 06/17/2023 2:53 PM CDT EXAMINATION: Images For Reference Purposes Only us Elena Lipscomb NP IMG MAMMO PROCEDURES Final Result [facility] documented in this encounter Visit Diagnoses Not on filedocumented in this encounter
== END 2024-08-29 10:29 | disposition home or self-care (01) ==
PROVIDERS: PCP Family Medicine; Visit Provider Plastic Surgery
DX: M18.12 Unilateral primary osteoarthritis of first carpometacarpal joint, left hand (principal)
CPT/HCPCS: 73130

== ENCOUNTER 2025-01-03 14:10 | Outpatient (CLI) | payer MEDICARE, SELFPAY ==
--- NOTE | ~2025-01-03 | MR_ITS ---
EXAMINATION: MR brain/brain stem wo/w con DATE: 01/03/2025 15:02 INDICATION: Stroke. Benign neoplasm of the meninges. TECHNIQUE: Magnetic resonance imaging (MRI) of the brain and brainstem was performed without and with 14 mL Multihance intravenous contrast. Sequences included sagittal and axial T1-weighted SE, axial diffusion-weighted FS SE, axial T2*-weighted GRE, axial T2-weighted FLAIR, and axial T2-weighted FSE. Postcontrast axial and coronal T1-weighted SE was obtained. Apparent diffusion coefficient (ADC) maps were created. COMPARISON: 06/30/2022 FINDINGS: There are no areas of restricted diffusion to suggest acute infarction. Small region of encephalomalacia at site of the previously acute, now chronic infarct involving the portions of the right basal ganglia and posterior limb of the right internal capsule. There is been some interval increase in size of a previously 11 x 7 x 11 mm, currently 15 x 9 x 11 mm enhancing extra-axial mass at the lateral aspect of the right cavernous sinus. No intracranial hemorrhage or abnormal intra-axial mass lesion. There are a few additional scattered small foci of increased T2-weighted signal intensity which within normal limits for age and likely sequela of chronic small vessel ischemic disease.. There are no intraparenchymal signal abnormalities seen on the other pulse sequences. The ventricles are symmetric and normal in size. There are no abnormal extra-axial fluid collections. Flow voids are seen in the cerebral arteries on the T2- weighted sequences consistent with their expected patency. Mild mucosal thick ening in the ethmoid sinuses. Visualized orbits and soft tissues are unremarkable. There are no areas of abnormal enhancement on the post contrast images. IMPRESSION: 1. 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 No acute intracranial process. 2. There is been some interval increase in size of a now 15 x 9 x 11 mm enhancing extra-axial mass at the lateral aspect of the right cavernous sinus most likely representing a meningioma or schwannoma. Reviewed, dictated and finalized at location A. [facility] IMPRESSION: 1. Interval Evolution of a now chronic infarct involving the right basal gangli a and posterior limb of the right internal capsule. No acute intracranial proce ss. 2. There is been some interval increase in size of a now 15 x 9 x 11 mm enhanci ng extra-axial mass at the lateral aspect of the right cavernous sinus most lik jessica representing a meningioma or schwannoma.
== END 2025-01-03 14:11 | disposition home or self-care (01) ==
PROVIDERS: PCP Neurological Surgery; Visit Provider Neurological Surgery
DX: D32.9 Benign neoplasm of meninges, unspecified (principal); I63.89 Other cerebral infarction
CPT/HCPCS: 70553; A9577